=== PATIENT | male | born 1940 | race Caucasian/White ===

== ENCOUNTER 2016-08-29 12:45 | Inpatient (IN) | payer MEDICARE, OTHER ==
[~2016-08-29] VITALS: Ht 170.2 cm; Wt 121.0 kg
[2016-08-29] VITALS (11 sets, daily range): BP systolic 123–150; BP diastolic 69–98; PULSE 78–94; RESP 17–23; TEMP 98–98.8; O2SAT 92–100
--- NOTE | 2016-08-29 13:06 | PD ---
Physical Exam Time Seen by Provider: 13:05 Narrative 75 y/o male hx of COPD presents with BLE, increased SOB than usual for one week. Vital signs reviewed. Seen at triage desk. Awaiting bed placement. Data Data Last Documented VS Vital Signs Date Time Temp Pulse Resp B/P Pulse Ox O2 Delivery O2 Flow Rate FiO2 08/29/16 12:47 98.8 78 19 141/78 92 MDM Medical Record Reviewed: Yes Supervised Visit with [place]: Didier Murillo Aug 29, 2016 13:06
--- NOTE | 2016-08-29 16:03 | PD ---
HPI Chief Complaint: Respiratory Symptoms Time Seen by Provider: 16:02 Travel History International Travel<30 days: No Contact w/Intl Traveler<30days: No Traveled to known affect area: No History of Present Illness HPI 75-year-old male came to the emergency room with severe respiratory distress. Patient was very short of breath and could barely get one word per breath. What I understood he has been sick since Monday. He has history of COPD. He has been using his inhaler but he did not feel better. Patient is a smoker. He told me he has never been hospitalized for COPD. He uses a CPAP machine at home but his oxygen saturation was low and hence he decided to come in. No history of fever or chills. He was 92% on room air in triage. [facility] Past Medical History Narrative Medical List of his past medical, surgical, social and family history was reviewed from the nursing note. Respiratory: Yes Social History Tobacco Use: Yes Allergies-Medications (Allergen,Severity, Reaction): Coded Allergies: No Known Allergies (Unverified , 08/29/16) Comments No known drug allergies. Reported Meds & Prescriptions Reported Meds & Active Scripts Active Reported Advair Diskus Inh (Fluticasone-Salmeterol Inh) 250-50 Mcg/Blist Aer 1 Puff INH BID Rinse mouth after use. Vitamin D3 (Cholecalciferol) 2,000 Unit Cap 4,000 Units PO DAILY Aspirin 325 Mg Tab 325 Mg PO DAILY Dyrenium (Triamterene) Unknown Strength Cap Unknown Dose PO DAILY Zocor (Simvastatin) 20 Mg Tab 20 Mg PO DAILY Metformin (Metformin HCl) 500 Mg Tab 500 Mg PO BIDPC With meals Wellbutrin SR 12 HR (Bupropion HCl) 150 Mg Tab 150 Mg PO DAILY Narrative Medication Awaiting for the nurse to do the medical reconciliation. Review of Systems Except as stated in HPI: all other systems reviewed are Neg Physical Exam Narrative GENERAL: Awake, alert, significant distress, morbidly obese SKIN: Focused skin assessment warm/dry. Central cyanosis HEAD: Atraumatic. Normocephalic. EYES: Pupils equal and round. No scleral icterus. No injection or drainage. ENT: No nasal bleeding or discharge. Mucous membranes pink and moist. NECK: Trachea midline. No JVD. CARDIOVASCULAR: Regular rate and rhythm. No murmur appreciated. RESPIRATORY: Significantly diminished air entry bilaterally with prolonged expiration. Accessory muscles use for respiration GASTROINTESTINAL: Abdomen soft, non-tender, nondistended. Hepatic and splenic margins not palpable. MUSCULOSKELETAL: No obvious deformities. No clubbing. No cyanosis. No edema. NEUROLOGICAL: Awake and alert. No obvious cranial nerve deficits. Motor grossly within normal limits. Normal speech. PSYCHIATRIC: Appropriate mood and affect; insight and judgment normal. Data Data Last Documented VS Vital Signs Date Time Temp Pulse Resp B/P Pulse Ox O2 Delivery O2 Flow Rate FiO2 08/29/16 17:26 100 100 08/29/16 17:25 Ventilator 08/29/16 17:13 94 23 123/98 08/29/16 12:47 98.8 Orders Complete Blood Count With Diff (08/29/16 16:28) Basic Metabolic Panel (Bmp) (08/29/16 16:28) B-Type Natriuretic Peptide (08/29/16 16:28) Magnesium (Mg) (08/29/16 16:28) Troponin I (08/29/16 16:28) Urinalysis - C+S If Indicated (08/29/16 16:28) Iv Access Insert/Monitor (08/29/16 16:28) Electrocardiogram (08/29/16 16:28) Ecg Monitoring (08/29/16 16:28) Oximetry (08/29/16 16:28) Oxygen Administration (08/29/16 16:28) Chest, Single Ap (08/29/16 16:28) Sodium Chloride 0.9% Flush (Ns Flush) (08/29/16 16:30) Methylprednisolone So Succ Inj (Solumedr (08/29/16 16:30) Albuterol-Ipratropium Neb (Duoneb Neb) (08/29/16 16:30) Albuterol-Ipratropium Neb (Duoneb Neb) (08/29/16 16:30) Arterial Blood Gas (Abg) (08/29/16 ) Etomidate Inj (Amidate Inj) (08/29/16 17:07) Succinylcholine Inj (Quelicin Inj) (08/29/16 17:08) Propofol 1000 Mg/100 Ml Inj (Diprivan 10 (08/29/16 17:09) Albuterol Neb (Albuterol Neb) (08/29/16 17:15) Furosemide Inj (Lasix Inj) (08/29/16 17:45) Urinary Catheter Insert/Apply (08/29/16 17:34) Admit Order (Ed Use Only) (08/29/16 18:21) Labs Laboratory Tests Test 08/29/16 08/29/16 08/29/16 16:50 17:10 17:20 White Blood Count 12.0 TH/MM3 Red Blood Count 4.26 MIL/MM3 Hemoglobin 13.4 GM/DL Hematocrit 40.0 % Mean Corpuscular Volume 94.0 FL Mean Corpuscular Hemoglobin 31.5 PG Mean Corpuscular Hemoglobin 33.6 % Concent Red Cell Distribution Width 14.0 % Platelet Count 207 TH/MM3 Mean Platelet Volume 8.2 FL Neutrophils (%) (Auto) 66.4 % Lymphocytes (%) (Auto) 20.4 % Monocytes (%) (Auto) 9.7 % Eosinophils (%) (Auto) 2.3 % Basophils (%) (Auto) 1.2 % Neutrophils # (Auto) 8.0 TH/MM3 Lymphocytes # (Auto) 2.4 TH/MM3 Monocytes # (Auto) 1.2 TH/MM3 Eosinophils # (Auto) 0.3 TH/MM3 Basophils # (Auto) 0.1 TH/MM3 CBC Comment DIFF FINAL Differential Comment Sodium Level 138 MEQ/L Potassium Level 4.6 MEQ/L Chloride Level 102 MEQ/L Carbon Dioxide Level 29.5 MEQ/L Anion Gap 7 MEQ/L Blood Urea Nitrogen 18 MG/DL Creatinine 1.01 MG/DL Estimat Glomerular Filtration 72 ML/MIN Rate Random Glucose 102 MG/DL Calcium Level 9.6 MG/DL Magnesium Level 2.2 MG/DL Troponin I 0.07 NG/ML B-Type Natriuretic Peptide 431 PG/ML Urine Color LIGHT-YELLOW Urine Turbidity CLEAR Urine pH 7.5 Urine Specific [place] 1.008 Urine Protein 30 mg/dL Urine Glucose (UA) NEG mg/dL Urine Ketones NEG mg/dL Urine Occult Blood NEG Urine Nitrite NEG Urine Bilirubin NEG Urine Urobilinogen 2.0 MG/DL Urine Leukocyte Esterase NEG Urine RBC LESS THAN 1 /hpf Urine WBC LESS THAN 1 /hpf Urine Squamous Epithelial <1 /hpf Cells Microscopic Urinalysis Comment CULT NOT INDICATED Blood Gas Puncture Site RT RADIAL Blood Gas Patient Temperature 98.6 Blood Gas HCO3 27 mmol/L Blood Gas Base Excess 1.8 mmol/L Blood Gas Oxygen Saturation 98 % Arterial Blood pH 7.34 Arterial Blood Partial 51 mmHg Pressure CO2 Arterial Blood Partial 330 mmHG Pressure O2 Arterial Blood Oxygen Content 19.5 Vol % Arterial Blood 1.8 % Carboxyhemoglobin Arterial Blood Methemoglobin 0.5 % Blood Gas Hemoglobin 13.7 G/DL Oxygen Delivery Device BIPAP Blood Gas Ventilator Setting IPAP 16/EPAP 8 Blood Gas Inspired Oxygen 100 % MDM Medical Decision Making Medical Screen Exam Complete: Yes Emergency Medical Condition: Yes Medical Record Reviewed: Yes Interpretation(s) Twelve-lead EKG was reviewed by me. Normal sinus rhythm, normal axis, poor R- wave progression, motion artifacts. Heart rate of 92 bpm. Differential Diagnosis Acute COPD exacerbation, CHF, pleural effusion, pneumonia Narrative Course 6:27 PM patient was initially given 3 duo nebs [id number] after which patient had minimal improvement. Initially I was deciding to intubate him given severe work of breathing. However decided to give him a trial of BiPAP which remarkably improved his symptoms. He was also given 3 albuterol through the BiPAP. Arterial blood gas was at an acceptable result. Rest of the blood tests are within normal limits except for BNP which is mildly elevated. X-ray was read as CHF. Patient was given IV 60 mg of Lasix. I have admitted him to the hospitalist and CICU. Critical Care Narrative Aggregate critical care time was 60 minutes. Time to perform other separately billable procedures was not included in the critical care time. My time did not include minutes spent treating any other patients simultaneously or on activities that did not directly contribute to the patient's treatment. The services I provided to this patient were to treat and/or prevent clinically significant deterioration that could result in: Severe respiratory distress, CHF exacerbation I provided critical care services requiring my management, as noted below: Chart data review, documentation time, medication orders and management, vital sign assessments/reviewing monitor data, ordering and reviewing lab tests, ordering and interpreting/reviewing x-rays and diagnostic studies, care of the patient and discussion of the patient with the admitting physicians. Procedures EKG Prior to Arrival: No Diagnosis Primary Impression: Respiratory distress Additional Impressions: CHF (congestive heart failure) Qualified Code: I50.9 - Congestive heart failure, unspecified congestive heart failure chronicity, unspecified congestive heart failure type COPD exacerbation Admitting Information Admitting Physician Requests: Admit Scripts Oxygen (O2) Inha #4 Liter Tip.canula Continuous Oxygen Concentrator Portable Gaseous 2 L/min via Nasal [place] Continuous For 99 months Prov:Radhames Sousa MD 08/31/16 Potassium Chloride Microencaps 20 Meq Tab20 Meq PO Q12HR #60 TAB Prov:Radhames Sousa MD 08/31/16 Furosemide (Lasix)20 Mg Tab20 Mg PO BID #60 TAB Ref 0 Prov:Radhames Sousa MD 08/31/16 Azithromycin 250 Mg Uun755 Mg PO DAILY #5 TAB Ref 0 Prov:Radhames Sousa MD 08/31/16 Prednisone 20 Mg Tab20 Mg PO DIRECTED #11 TAB Ref 0 40 MG twice a day x 3 days, then 20 MG daily x 3 days, then 10 MG daily x 3 days Prov:Radhames Sousa MD 08/31/16 Albuterol 18 GM Inh (Ventolin Hfa 18 GM Inh)90 Mcg/Act Aer2 Puff INH Q4-6H PRN ( SHORTNESS OF BREATH) #1 INHALER Ref 3 Prov:Radhames Sousa MD 08/31/16 Ipratropium HFA 12.9 GM Inh (Atrovent HFA 12.9 GM Inh)17 Mcg/Act Aer2 Puff INH Q6HR PRN (SHORTNESS OF BREATH) #1 INHALER Ref 3 Prov:Radhames Sousa MD 08/31/16 Budesonide-Formoterol Inh (Symbicort Inh)160-4.5 Mcg/Act Aero2 Puff INH Q12HR # 1 INHALER Ref 3 Prov:Radhames Sousa MD 08/31/16 Tiotropium Inh (Spiriva Handihaler)18 Mcg Cap18 Mcg INH DAILY #1 CAP Ref 3 Prov:Radhames Sousa MD 08/31/16 Losartan (Cozaar)25 Mg Tab25 Mg PO DAILY #30 TAB Ref 3 Prov:Radhames Sousa MD 08/31/16 Carvedilol (Coreg)3.125 Mg Tab3.125 Mg PO BID #60 TAB Ref 3 Prov:Radhames Sousa MD 08/31/16 Dipti Steiner MD Aug 29, 2016 16:03
[2016-08-29] MEDS ORDERED: methylPREDNISolone SOD SUCC 125 MG/2 ML VIAL IVP ONE (16:30)
[2016-08-29] MEDS ORDERED: RESP: ALBUTEROL 2.5 MG/IPRATROPIUM 0.5 MG NEB (SCH) INH (16:30)
[2016-08-29] MEDS ORDERED: RESP: ALBUTEROL 2.5 MG/IPRATROPIUM 0.5 MG NEB (SCH) ONE (16:30)
[2016-08-29] MEDS ORDERED: SODIUM CHLORIDE 0.9% FLUSH 10 ML FLUSH IVF PRN (16:30)
[2016-08-29 17:05] LABS: BASOPHIL # 0.1 TH/MM3 (0-0.2); BASOPHIL % 1.2 % (0.0-2.0); EOSINOPHIL # 0.3 TH/MM3 (0-0.4); EOSINOPHIL % 2.3 % (0.0-4.0); LYMPH % 20.4 % (9.0-44.0); LYMPHOCYTE # 2.4 TH/MM3 (1.0-4.8); MEAN CORPUSCULAR HEMOGLOBIN 31.5 PG (27.0-34.0); MEAN CORPUSCULAR HGB CONC 33.6 % (32.0-36.0); MONO % 9.7 % (0.0-8.0); NEUT % 66.4 % (16.0-70.0); PLATELET COUNT 207 TH/MM3 (150-450); RED BLOOD COUNT 4.26 MIL/MM3 (4.50-5.90)
[2016-08-29] MEDS ORDERED: ETOMIDATE 20 MG/10 ML VIAL ONE (17:07)
[2016-08-29] MEDS ORDERED: SUCCINYLCHOLINE CHLORIDE 200 MG/10 ML VIAL ONE (17:08)
[2016-08-29 17:09] LABS: HEMO FLAGS DIFF FINAL
[2016-08-29] MEDS ORDERED: PROPOFOL 1000 MG/100 ML INJ 100 ML ONE (17:09)
--- NOTE | 2016-08-29 17:19 | RADRPT ---
EXAM DATE/TIME: 08/29/2016 16:56 [place] COMPARISON: No previous studies available for comparison. INDICATIONS : Patient has severe shortness of breath; unable to sit in stretcher. MEDICAL HISTORY : unobtainable SURGICAL HISTORY : unobtainable ENCOUNTER: Initial ACUITY: 2 days PAIN SCORE: 0/10 LOCATION: Bilateral upper chest FINDINGS: Limited views reveals moderate interstitial edema and substantial cardiomegaly. Repeat exam will be obtained when the patient's clinically stable. CONCLUSION: Significant cardiomegaly with moderate congestive failure. Kenny Lee MD FACR on August 29, 2016 at 17:16 Board Certified Radiologist. This report was verified electronically.
[2016-08-29] MEDS: RESP: ALBUTEROL 2.5 MG/3 ML NEB (SCH) INH (17:24)
[2016-08-29 17:40] LABS: BICARBONATE 29.5 MEQ/L (21.0-32.0); MAGNESIUM 2.2 MG/DL (1.5-2.5); POTASSIUM 4.6 MEQ/L (3.5-5.1)
[2016-08-29 17:43] LABS: BLOOD GAS BASE EXCESS 1.8 mmol/L (-2-2); BLOOD GAS CARBOXYHEMOGLOBIN 1.8 % (0-4); BLOOD GAS HCO3 27 mmol/L (22-26); BLOOD GAS METHEMOGLOBIN 0.5 % (0-2); BLOOD GAS O2 HGB SATURATION 98 % (90-100); BLOOD GAS OXYGEN CONTENT 19.5 Vol % (12.0-20.0); BLOOD GAS PCO2 51 mmHg (38-42); BLOOD GAS PO2 330 mmHG (61-120); BLOOD GAS TOTAL HGB 13.7 G/DL (12.0-16.0); CRITICAL VALUE YES; OXYGEN DEVICE BIPAP; TEMP CORR TO 98.6
[2016-08-29 17:44] LABS: DRAW SITE RT RADIAL; FIO2 100 %; NUMBER OF ARTERIAL PUNCTURES 1; STAT YES; ULNAR PULSE PRESENT; VENT SETTINGS IPAP 16/EPAP 8
[2016-08-29] MEDS ORDERED: FUROSEMIDE 20 MG/2 ML VIAL IV PUSH ONE (17:45)
[2016-08-29 18:21] LABS: BLOOD, URINE NEG (NEG); COMMENT (UR) CULT NOT INDICATED; CULTURE IF INDICATED CULT NOT INDICATED; GLUCOSE,URINE NEG (NEG); KETONE, URINE NEG (NEG); NITRITE,URINE NEG (NEG); PH, URINE 7.5 (5.0-8.5); SQUAMOUS EPITHELIAL CELL URINE <1 /hpf (0-5); URINE COLOR LIGHT-YELLOW (YELLW/STRAW)
--- NOTE | 2016-08-29 20:08 | HHI.HP ---
[facility] Service [facility] Primary Care Physician [facility] Admission Diagnosis respiratory distress, CHF exacerbation Diagnoses: Chief Complaint: Bilateral lower extremity and shortness of breath Travel History International Travel<30 Days: No Contact w/Intl Traveler <30 Da: No Traveled to Known Affected Are: No History of Present Illness Written by Kamryn Sanchez, acting as scribe for Dr. Long on 08/29/16 at 20: 04. This is a pleasant 75-year-old male patient with past medical history which includes hypertension, hyperlipidemia, diabetes mellitus type 2, COPD, sleep apnea does use BiPAP with oxygen at night-only. Patient presented with severe respiratory distress and hypoxia, severe short of breath he can barely see the one word, medical staff in ED were getting ready to intubate the patient however eventually they decided to go with a trial on BiPAP 100% FiO2 , with breathing treatment , arterial blood gas pH of 7.34, PCO2 of 51, PO2 of 330, base excess of 1.8, bicarbonate 27. Later on patient started to slowly improve, he was able to give some information, Patient reports that starting Monday 3 days ago he began having bilateral lower extremity edema which he has not on the past. Patient also reports shortness of breath and orthopnea as he is unable to lay flat due to worsening shortness of breath with laying flat. Patient also reports he had an episode on Monday where his home pulse oximetry was reading was in the 70s he treated himself with nebulizer treatments and his home BiPAP. Patient reports he has not gotten better therefore he proceeded to the emergency department for further evaluation and treatment. Patient is somewhat of a poor historian reports he does not know if he has a history of congestive heart failure and does not know if he takes diuretic or water pills at home. Patient denies fever, chills, nausea, vomiting, chest pain, changes in appetite changes, sodium intake or changes in weight. Review of Systems ROS Limitations: Poor Historian Except as stated in HPI: all other systems reviewed are Neg Past Family Social History Past Medical History COPD, sleep apnea does use CPAP with oxygen at night, hypertension, hyperlipidemia, diabetes mellitus type 2 Past Surgical History Tonsillectomy as a child Reported Medications Advair Diskus Inh (Fluticasone-Salmeterol Inh) 250-50 Mcg/Blist Aer 1 Puff INH BID Rinse mouth after use. Vitamin D3 (Cholecalciferol) 2,000 Unit Cap 4,000 Units PO DAILY Aspirin 325 Mg Tab 325 Mg PO DAILY Combivent Respimat Inh (Ipratropium-Albuterol Inh) 20-100 [place]/Act Aero 2 Puff INH QID PRN Dyrenium (Triamterene) Unknown Strength Cap Unknown Dose PO DAILY Zocor (Simvastatin) 20 Mg Tab 20 Mg PO DAILY Amlodipine (Amlodipine Besylate) 5 Mg Tab 5 Mg PO DAILY Atenolol 50 Mg Tab 50 Mg PO DAILY Metformin (Metformin HCl) 500 Mg Tab 500 Mg PO BIDPC With meals Wellbutrin SR 12 HR (Bupropion HCl) 150 Mg Tab 150 Mg PO DAILY Allergies: Coded Allergies: No Known Allergies (Unverified , 08/29/16) Active Ordered Medications Current Medications Medications (Trade) Dose Ordered Sig/Sherry Route Start Time Stop Time Status Last Admin (NS Flush) 2 ml UNSCH PRN IVF 08/29/16 16:30 Family History Father secondary to [place] Social History Tobacco use: Patient reports he smokes proximally half a pack a day but has not smoked in the past 3 days EtOH use occasional beer not on a daily basis Physical Exam Vital Signs Vital Signs Date Time Temp Pulse Resp B/P Pulse Ox O2 Delivery O2 Flow Rate FiO2 08/29/16 18:56 85 22 147/69 100 BiPAP 60 08/29/16 17:26 100 100 08/29/16 17:25 100 Ventilator 100 08/29/16 17:13 94 23 123/98 99 BiPAP 100 08/29/16 17:13 99 BiPAP 100 08/29/16 12:47 98.8 78 19 141/78 92 Physical Exam GENERAL: This is a well-nourished, well-developed patient, currently on BiPAP with poor air movement SKIN: No rashes, ecchymoses or lesions. Cool and dry. HEAD: Atraumatic. Normocephalic. No temporal or scalp tenderness. EYES: Extraocular motions intact. No scleral icterus. No injection or drainage. NECK: Trachea midline. Positive JVD or lymphadenopathy. Supple, nontender, no meningeal signs. CARDIOVASCULAR: Regular rate and rhythm with 3/6 systolic murmur and S3 noted RESPIRATORY: Poor air movement throughout GASTROINTESTINAL: Abdomen soft, non-tender, nondistended.No guarding. MUSCULOSKELETAL: Bilateral lower extremities with 3+ pitting edema. No joint tenderness, effusion, or edema noted. No calf tenderness. Negative Homans sign bilaterally. NEUROLOGICAL: Awake and alert. No focal deficits appreciated. Motor and sensory grossly within normal limits. 4-5 out of 5 muscle strength in all muscle groups. Laboratory Laboratory Tests Test 08/29/16 08/29/16 08/29/16 16:50 17:10 17:20 White Blood Count 12.0 Red Blood Count 4.26 Hemoglobin 13.4 Hematocrit 40.0 Mean Corpuscular Volume 94.0 Mean Corpuscular Hemoglobin 31.5 Mean Corpuscular Hemoglobin 33.6 Concent Red Cell Distribution Width 14.0 Platelet Count 207 Mean Platelet Volume 8.2 Neutrophils (%) (Auto) 66.4 Lymphocytes (%) (Auto) 20.4 Monocytes (%) (Auto) 9.7 Eosinophils (%) (Auto) 2.3 Basophils (%) (Auto) 1.2 Neutrophils # (Auto) 8.0 Lymphocytes # (Auto) 2.4 Monocytes # (Auto) 1.2 Eosinophils # (Auto) 0.3 Basophils # (Auto) 0.1 CBC Comment DIFF FINAL Differential Comment Sodium Level 138 Potassium Level 4.6 Chloride Level 102 Carbon Dioxide Level 29.5 Anion Gap 7 Blood Urea Nitrogen 18 Creatinine 1.01 Estimat Glomerular Filtration 72 Rate Random Glucose 102 Calcium Level 9.6 Magnesium Level 2.2 Troponin I 0.07 B-Type Natriuretic Peptide 431 Urine Color LIGHT-YELLOW Urine Turbidity CLEAR Urine pH 7.5 Urine Specific [place] 1.008 Urine Protein 30 Urine Glucose (UA) NEG Urine Ketones NEG Urine Occult Blood NEG Urine Nitrite NEG Urine Bilirubin NEG Urine Urobilinogen 2.0 Urine Leukocyte Esterase NEG Urine RBC LESS THAN 1 Urine WBC LESS THAN 1 Urine Squamous Epithelial <1 Cells Microscopic Urinalysis Comment CULT NOT INDICATED Blood Gas Puncture Site RT RADIAL Blood Gas Patient Temperature 98.6 Blood Gas HCO3 27 Blood Gas Base Excess 1.8 Blood Gas Oxygen Saturation 98 Arterial Blood pH 7.34 Arterial Blood Partial 51 Pressure CO2 Arterial Blood Partial 330 Pressure O2 Arterial Blood Oxygen Content 19.5 Arterial Blood 1.8 Carboxyhemoglobin Arterial Blood Methemoglobin 0.5 Blood Gas Hemoglobin 13.7 Oxygen Delivery Device BIPAP Blood Gas Ventilator Setting IPAP 16/EPAP 8 Blood Gas Inspired Oxygen 100 Result Diagram: 08/29/16 1650 08/29/16 1650 Imaging Last Impressions Chest X-Ray 08/29/16 1628 Signed Impressions: Service Date/Time: Monday, August 29, 2016 16:56 - CONCLUSION: Significant cardiomegaly with moderate congestive failure. Kenny Lee MD FACR Assessment and Plan Problem List: (1) Respiratory distress ICD Code: R06.00 Status: Acute (2) CHF (congestive heart failure) ICD Code: I50.9 Status: Acute (3) COPD exacerbation ICD Code: J44.1 Status: Acute Assessment and Plan This is a pleasant 75-year-old male patient with past medical history which includes hypertension, hyperlipidemia, diabetes mellitus type 2, COPD, sleep apnea does use BiPAP with oxygen at night-only, patient reports that starting Monday 3 days ago he began having bilateral lower extremity edema which he has not on the past. patient presented with respiratory distress, hypoxia only able to speak one word at a time do to shortness of breath was near intubation. Patient was initially placed on BiPAP 100% FiO2 with a arterial blood gas pH of 7.34, PCO2 of 51, PO2 of 3:30, base excess of 1.8, bicarbonate 27. Severe respiratory failure due to COPD exacerbation with respiratory acidosis, hypoxia and respiratory distress Personally ordered and Reviewed ABG on BiPAP after almost hour and a half of applying nebulizers and BiPAP reveals pH of 7.34, PCO2 of 51, PO2 of 3:30, base excess of 1.8, bicarbonate 27. Continue BiPAP titrated down to as able Duo nebs 4 times a day scheduled and every 2 hours as needed Chest x-ray reviewed and reveals significant cardiomegaly with moderate congestive heart failure New onset CHF with exacerbation- unknown CHF-type echo pending BNP on arrival 431 60 mg IV Lasix ordered start Coreg 3.125 mg by mouth twice a day, losartan 25 mg by mouth daily and also Lasix 40 mg IV twice a day Echocardiogram ordered and pending Chest x-ray reviewed and reveals significant cardiomegaly with moderate congestive heart failure Hypertension- chronic Will hold atenolol and amlodipine and triamterene Will start Coreg 3.125 mg by mouth twice a day, losartan 25 mg by mouth daily and also Lasix 40 mg IV twice a day Diabetes mellitus type 2- chronic Hold by mouth metformin to avoid lactic acidosis Start Accu-Cheks before meals at bedtime with low-dose sliding scale insulin coverage Hyperlipidemia chronic Continue simvastatin 20 mg daily DVT prophylaxis with heparin subcutaneous Discussed with ER provider, nursing and patient Critical care time spent 60 minutes Physician Certification 2 Midnight Certification Type: Admission for Inpatient Services Order for Inpatient Services The services are ordered in accordance with Medicare regulations or non- Medicare payer requirements, as applicable. In the case of services not specified as inpatient-only, they are appropriately provided as inpatient services in accordance with the 2-midnight benchmark. Estimated LOS (days): 4 days is the estimated time the patient will need to remain in the hospital, assuming treatment plan goals are met and no additional complications. Post-Hospital Plan: Not yet determined Problem Qualifiers (1) CHF (congestive heart failure): Qualified Code: I50.9 - Congestive heart failure, unspecified congestive heart failure chronicity, unspecified congestive heart failure type Kamryn Sanchez Aug 29, 2016 20:08 Nida Long MD Aug 31, 2016 21:31
[2016-08-29] MEDS ORDERED: ZOCO20TA PO (20:33)
[2016-08-29] MEDS ORDERED: TRIA1CAP6 PO (20:33)
[2016-08-29] MEDS ORDERED: METF500T PO (20:33)
[2016-08-29] MEDS ORDERED: BUPR150CR PO (20:33)
[2016-08-29] MEDS ORDERED: AMLO5TAB2 PO (20:33)
[2016-08-29] MEDS ORDERED: ATEN50TA PO (20:33)
[2016-08-29] MEDS ORDERED: VITA2000 PO (20:35)
[2016-08-29] MEDS ORDERED: ADVA250A INH (20:35)
[2016-08-29] MEDS ORDERED: ASPI325T PO (20:35)
[2016-08-29] MEDS ORDERED: IPRAAER INH (20:35)
[2016-08-29] MEDS ORDERED: NALOXONE HCL 0.4 MG/ML AMP IV PRN (20:45)
[2016-08-29] MEDS ORDERED: SODIUM CHLORIDE 0.9% FLUSH 10 ML FLUSH IV FLUSH PRN (20:45)
[2016-08-29] MEDS ORDERED: MAGNESIUM HYDROXIDE SUSP 30 ML CUP PO PRN (20:45)
[2016-08-29] MEDS ORDERED: ACETAMINOPHEN 325 MG TAB PO PRN (20:45)
[2016-08-29] MEDS: INSULIN NovoLIN REGULAR SUPPLEMENTAL SCALE SQ SCH (21:00)
[2016-08-29] MEDS ORDERED: ENALAPRILAT 1.25 MG/ML VIAL IV PUSH PRN (21:00)
[2016-08-29] MEDS: HEPARIN SODIUM - SQ 10,000 UNITS/ML VIAL SQ SCH (21:00)
[2016-08-29] MEDS ORDERED: DEXTROSE 50% IN WATER 50 ML VIAL(D50) IV PRN (21:00)
[2016-08-29] MEDS: DOCUSATE SODIUM 50 MG/SENNA 8.6 MG TAB PO SCH (21:00)
[2016-08-29] MEDS ORDERED: BUDESONIDE-FORMOTEROL 160/4.5 MCG INHALER INH SCH (21:00)
[2016-08-29] MEDS ORDERED: RESP: ALBUTEROL 2.5 MG/IPRATROPIUM 0.5 MG NEB (PRN) NEB (21:00)
[2016-08-29] MEDS: CARVEDILOL 3.125 MG TAB PO SCH (21:00)
[2016-08-29] MEDS: ASPIRIN 325 MG TAB PO SCH (21:00)
[2016-08-29] MEDS ORDERED: NON-FORMULARY DRUG (Fluticasone-Salmeterol Inh (Advair Diskus Inh) 1 PUFF) INH SCH (21:00)
[2016-08-29] MEDS ORDERED: GLUCAGON 1 MG/ML VIAL OTHER PRN (21:00)
[2016-08-29] MEDS: RESP: ALBUTEROL 2.5 MG/IPRATROPIUM 0.5 MG NEB (SCH) NEB (21:27)
[2016-08-29] MEDS: BUDESONIDE-FORMOTEROL 160/4.5 MCG INHALER INH SCH (22:41)
[2016-08-29] MEDS: SODIUM CHLORIDE 0.9% FLUSH 10 ML FLUSH IV FLUSH SCH (22:41)
[2016-08-30] VITALS (29 sets, daily range): BP systolic 139–148; BP diastolic 79–82; PULSE 67–86; RESP 16–22; TEMP 98–98.9; O2SAT 91–97
[2016-08-30] MEDS: HEPARIN SODIUM - SQ 10,000 UNITS/ML VIAL SQ SCH ×3 (05:23→20:52)
[2016-08-30] MEDS: INSULIN NovoLIN REGULAR SUPPLEMENTAL SCALE SQ SCH (06:10)
[2016-08-30] MEDS: RESP: ALBUTEROL 2.5 MG/IPRATROPIUM 0.5 MG NEB (SCH) NEB ×4 (07:32→20:12)
[2016-08-30 08:42] LABS: AUTOMATED NEUTROPHIL # 4.9 TH/MM3 (1.8-7.7); BASOPHIL % 0.1 % (0.0-2.0); HEMATOCRIT 35.7 % (39.0-51.0); HEMO FLAGS DIFF FINAL; LYMPHOCYTE # 0.6 TH/MM3 (1.0-4.8); MEAN CELL VOLUME 92.6 FL (80.0-100.0); MEAN CORPUSCULAR HEMOGLOBIN 31.9 PG (27.0-34.0); MEAN CORPUSCULAR HGB CONC 34.4 % (32.0-36.0); MONO % 2.9 % (0.0-8.0); PLATELET COUNT 177 TH/MM3 (150-450); RED BLOOD COUNT 3.85 MIL/MM3 (4.50-5.90); RED CELL DISTRIBUTION WIDTH 13.8 % (11.6-17.2); WHITE BLOOD COUNT 5.6 TH/MM3 (4.0-11.0)
[2016-08-30] MEDS ORDERED: NON-FORMULARY DRUG (Simvastatin (Zocor) 20 MG) PO SCH (09:00)
[2016-08-30] MEDS: buPROPion HCL 150 MG SUSTAINED RELEASE TAB PO SCH (09:04)
[2016-08-30] MEDS: PRAVASTATIN SOD 40 MG TAB PO SCH (09:04)
[2016-08-30] MEDS: ASPIRIN 325 MG TAB PO SCH (09:04)
[2016-08-30] MEDS: CARVEDILOL 3.125 MG TAB PO SCH ×2 (09:04→20:52)
[2016-08-30] MEDS: LOSARTAN 25 MG TAB PO SCH (09:04)
[2016-08-30] MEDS: DOCUSATE SODIUM 50 MG/SENNA 8.6 MG TAB PO SCH ×2 (09:04→20:52)
[2016-08-30] MEDS: FUROSEMIDE 40 MG/4 ML VIAL IV PUSH SCH ×2 (09:05→17:24)
[2016-08-30] MEDS: SODIUM CHLORIDE 0.9% FLUSH 10 ML FLUSH IV FLUSH SCH ×2 (09:05→20:52)
[2016-08-30] MEDS: BUDESONIDE-FORMOTEROL 160/4.5 MCG INHALER INH SCH ×2 (09:05→20:51)
[2016-08-30 09:25] LABS: INDIRECT BILIRUBIN 0.2 MG/DL (0.0-0.8); POTASSIUM 4.1 MEQ/L (3.5-5.1); TOTAL BILIRUBIN ADULT 0.3 MG/DL (0.2-1.0)
[2016-08-30] MEDS ORDERED: DEXTROSE 50% IN WATER 50 ML VIAL(D50) IV PRN (10:00)
[2016-08-30] MEDS ORDERED: GLUCAGON 1 MG/ML VIAL OTHER PRN (10:00)
--- NOTE | 2016-08-30 10:10 | HHI.PR ---
Subjective Remarks Follow-up COPD exacerbation/new onset CHF 08/30/16-patient seen and examined ;reports some improvement of shortness of breath however currently on nasal cannula 5 L oxygen and has not used BiPAP overnight. Currently afebrile Objective Vitals Vital Signs Date Time Temp Pulse Resp B/P Pulse Ox O2 Delivery O2 Flow Rate FiO2 08/30/16 07:55 95 Nasal Cannula 5.00 Humidified 08/30/16 07:54 98.9 85 22 139/81 95 08/30/16 07:32 91 Nasal Cannula 5.00 08/30/16 07:00 83 08/30/16 06:00 83 08/30/16 05:00 77 08/30/16 04:03 79 08/30/16 03:35 81 08/30/16 03:35 94 Nasal Cannula 5.00 Humidified 08/30/16 03:35 98.0 82 16 148/80 94 08/30/16 02:00 81 08/30/16 01:00 82 08/30/16 00:00 86 08/29/16 23:05 98.6 93 17 130/73 93 08/29/16 23:00 93 Nasal Cannula 5.00 Humidified 08/29/16 23:00 89 08/29/16 22:00 94 Nasal Cannula 5.00 Humidified 08/29/16 22:00 90 08/29/16 21:50 98.0 94 20 150/84 95 08/29/16 21:30 96 Nasal Cannula 5.00 08/29/16 21:26 81 20 143/73 95 Nasal Cannula 3 08/29/16 18:56 85 22 147/69 100 BiPAP 60 08/29/16 17:26 100 100 08/29/16 17:25 100 Ventilator 100 08/29/16 17:13 94 23 123/98 99 BiPAP 100 08/29/16 17:13 99 BiPAP 100 08/29/16 12:47 98.8 78 19 141/78 92 I/O 08/29/16 08/29/16 08/29/16 08/30/16 08/30/16 08/30/16 07:00 15:00 23:00 07:00 15:00 23:00 Intake Total 835 ml Output Total 650 ml Balance 185 ml Intake Oral 835 ml Output Urine Total 650 ml # Bowel Movements 0 Result Diagram: 08/30/16 0619 08/30/16 0629 Imaging Last Impressions Chest X-Ray 08/29/16 1628 Signed Impressions: Service Date/Time: Monday, August 29, 2016 16:56 - CONCLUSION: Significant cardiomegaly with moderate congestive failure. Kenny Lee MD FACR Objective Remarks GENERAL: NAD SKIN: Warm and dry. HEAD: Normocephalic. EYES: No scleral icterus. No injection or drainage. NECK: Supple, trachea midline. No JVD or lymphadenopathy. CARDIOVASCULAR: Regular rate and rhythm with II/ MARY RESPIRATORY: Breath sounds decrease bilaterally. No accessory muscle use.+ wheezings GASTROINTESTINAL: Abdomen soft, non-tender, nondistended. MUSCULOSKELETAL: No cyanosis, +trace edema. BACK: Nontender without obvious deformity. No CVA tenderness. A/P Problem List: (1) Respiratory distress ICD Code: R06.00 Status: Acute (2) CHF (congestive heart failure) ICD Code: I50.9 Status: Acute (3) COPD exacerbation ICD Code: J44.1 Status: Acute (4) Diabetes mellitus, type 2 ICD Code: E11.9 Status: Acute Assessment and Plan 75-year-old man with COPD exacerbation with respiratory acidosis, hypoxia and respiratory distress On admission ABG on BiPAP reveals pH of 7.34, PCO2 of 51, PO2 of 3:30, base excess of 1.8, bicarbonate 27. Continue BiPAP titrated down to as able Duo nebs 4 times a day scheduled and every 2 hours as needed,Symbicort Start Solu-Medrol 40 mg IV every 12 hours, Spiriva and azithromycin Currently on 5 L nasal cannula and keep oxygen saturation above 90% Schedule walk test prior to discharge New onset CHF with exacerbation- unknown CHF-type echo pending BMP on arrival 431 Currently on Lasix 40 mg every 12 hourly Continue with Coreg 3.125 mg by mouth twice a day, losartan 25 mg by mouth daily Consult cardiology pending Echocardiogram pending Hypertension- chronic Currently on Coreg 3.125 mg by mouth twice a day, losartan 25 mg by mouth daily Diabetes mellitus type 2- chronic Hold by mouth metformin continue Accu-Cheks and change to medium-dose sliding scale insulin coverage Hyperlipidemia chronic Continue simvastatin 20 mg daily DVT-Heparin Sq Problem Qualifiers (1) CHF (congestive heart failure): Qualified Code: I50.9 - Congestive heart failure, unspecified congestive heart failure chronicity, unspecified congestive heart failure type Radhames Sousa MD Aug 30, 2016 10:10
[2016-08-30] MEDS: methylPREDNISolone SOD SUCC 40 MG/1 ML VIAL IV PUSH SCH ×2 (10:34→20:52)
[2016-08-30] MEDS: INSULIN ASPART SUPPLEMENTAL SCALE SQ SCH ×3 (11:00→20:55)
[2016-08-30] MEDS: TIOTROPIUM BROMIDE 18 MCG INH INH SCH (11:44)
[2016-08-30] MEDS: AZITHROMYCIN 250 MG TAB PO SCH (13:07)
--- NOTE | 2016-08-30 18:05 | MB ---
cc: SERGO BROWNLEE M.D. DATE OF CONSULTATION: 08/30/2016 REASON FOR CONSULTATION: HISTORY OF PRESENT ILLNESS: Miguel Ángel is a very pleasant 75 year-old gentleman with no past medical history for significant cardiovascular disease. He presents with chief complaint of shortness of breath, currently feels much better and is very anxious to go home. Denies any fever, chills, cough, GI/ bleeding, PND, orthopnea, dizziness. PAST MEDICAL HISTORY: As per history of present illness. He has a history of COPD. C-PAP machine at home. SOCIAL HISTORY: He smokes. ALLERGIES: NONE. MEDICATIONS IN THE HOSPITAL: Azithromycin 250 q24 hours. 1. Potassium chloride 20 milliequivalents q12 hours. 2. Sliding scale insulin. 3. Methylprednisolone. 4. Spiriva. 5. Furosemide 40 IV b.i.d. 6. Losartan 2 daily. 7. Bupropion 150 daily. 8. Pravastatin 40 daily. 9. Carvedilol 3.25 b.i.d. 10. Aspirin 325 daily. 11. Symbicort. PHYSICAL EXAMINATION: Blood pressure 146/79, pulse 75, temperature 98.4, sats 93% on 3 liters nasal cannula. General: He is alert and oriented x3 in no acute distress. Neck: Supple. No JVD. No bruits. Cardiovascular: S1-S2. No murmurs, rubs, or gallops. Lungs: Clear to auscultation bilaterally. Abdomen: Soft, nontender, nondistended. Positive bowel sounds. Extremities 1+ lower extremity edema. X-RAYS: Chest x-ray significant for cardiomegaly with moderate congestive heart failure. EKG: normal sinus rhythm at 92 beats per minute, late R-wave transition. LABORATORY DATA White count 12.0, hemoglobin 12.3, hematocrit 35.7, platelet count 177, blood gas pH 7.34, pCO2 51, pO2 330, on 100% BiPAP. Sodium 135, potassium 4.1, chloride 98, BUN 26, creatinine 1.14, glucose 241. Troponin is 0.07, 0.08, BNP 431. DIAGNOSIS 12. Non-STEMI. 13. COPD. 14. Hypoxia 15. Decompensated congestive heart failure 16. Hyponatremia 17. Cardiomegaly. 18. Anemia. 19. Elevated white count 20. Tobacco use. DISCUSSION At this point in time, his history suggests that his troponin is elevated secondary to COPD exacerbation. He is being treated with nebulizers, bronchodilators, steroids and antibiotics for this. I doubt he has a primary obstructive etiology to his elevated troponin. BMP is somewhat indeterminate. It certainly could be from pulmonary hypertension from COPD and/or LV dysfunction, nevertheless, clinically he is responding well to Lasix. He is very anxious to go home. I think it is very reasonable to consider letting him go home tomorrow. He is not having any chest pain at all. I think the rest of his workup can be done as an outpatient. Certainly strongly recommend smoking cessation. Agree with aspirin, statin, beta-vangie, nitro. He is on an ARB, Losartan. He appears to be on optimal medical therapy. MD NIMA Willams/REYNA /4:00 PM /5:54 PM
[2016-08-30] MEDS: POTASSIUM CHLORIDE 20 MEQ CONTROLLED RELEASE TAB PO SCH (20:52)
--- NOTE | 2016-08-30 21:22 | EKG ---
Date Performed: 08/29/2016 Time Performed: 17:39:07 PTAGE: 75 years EKG: Sinus rhythm POSSIBLE ANTERIOR MYOCARDIAL INFARCTION BORDERLINE ECG NO PREVIOUS TRACING DOCTOR: Kaleb Ledezma Interpretating Date/Time 08/30/2016 21:17:47
[2016-08-31] VITALS (23 sets, daily range): BP systolic 143–159; BP diastolic 77–92; PULSE 58–74; RESP 22–24; TEMP 98–98.5; O2SAT 96–98
[2016-08-31] MEDS: HEPARIN SODIUM - SQ 10,000 UNITS/ML VIAL SQ SCH ×2 (05:00→12:30)
[2016-08-31] MEDS: INSULIN ASPART SUPPLEMENTAL SCALE SQ SCH ×3 (05:37→17:27)
[2016-08-31 06:46] LABS: AUTOMATED NEUTROPHIL # 11.8 TH/MM3 (1.8-7.7); HEMATOCRIT 39.3 % (39.0-51.0); HEMO FLAGS DIFF FINAL; LYMPH % 5.8 % (9.0-44.0); LYMPHOCYTE # 0.8 TH/MM3 (1.0-4.8); MEAN CELL VOLUME 93.4 FL (80.0-100.0); MEAN CORPUSCULAR HEMOGLOBIN 30.7 PG (27.0-34.0); MEAN CORPUSCULAR HGB CONC 32.9 % (32.0-36.0); MONO % 2.7 % (0.0-8.0); NEUT % 91.5 % (16.0-70.0); PLATELET COUNT 199 TH/MM3 (150-450); RED BLOOD COUNT 4.21 MIL/MM3 (4.50-5.90); RED CELL DISTRIBUTION WIDTH 13.7 % (11.6-17.2); WHITE BLOOD COUNT 12.9 TH/MM3 (4.0-11.0)
[2016-08-31 07:09] LABS: BICARBONATE 35.2 MEQ/L (21.0-32.0); POTASSIUM 4.8 MEQ/L (3.5-5.1)
[2016-08-31] MEDS: RESP: ALBUTEROL 2.5 MG/IPRATROPIUM 0.5 MG NEB (SCH) NEB ×3 (07:36→15:07)
--- NOTE | 2016-08-31 08:35 | HHI.PR ---
Subjective Remarks Follow-up COPD exacerbation/new onset CHF 08/30/16-patient seen and examined ;reports some improvement of shortness of breath however currently on nasal cannula 5 L oxygen and has not used BiPAP overnight. Currently afebrile 08/31/16-patient seen and examined, denies any chest pain, shortness of breath or heart palpitation. No acute event overnight. Able to use his own CPAP at night. Would like to go home Objective Vitals Vital Signs Date Time Temp Pulse Resp B/P Pulse Ox O2 Delivery O2 Flow Rate FiO2 08/31/16 07:38 97 Nasal Cannula 3.00 08/31/16 06:00 58 08/31/16 05:00 67 08/31/16 04:04 67 08/31/16 04:00 98.1 61 22 148/87 96 08/31/16 03:49 98 Nasal Cannula 2.00 08/31/16 03:00 67 08/31/16 02:00 66 08/31/16 01:00 65 08/31/16 00:00 70 08/31/16 00:00 98.0 64 24 146/77 98 08/30/16 23:30 94 Nasal Cannula 2.00 08/30/16 23:00 67 08/30/16 22:00 67 08/30/16 21:00 68 08/30/16 20:13 92 Nasal Cannula 3.00 08/30/16 20:00 98.2 78 20 139/82 94 08/30/16 20:00 94 Nasal Cannula 2.00 08/30/16 20:00 70 08/30/16 19:00 78 08/30/16 19:00 71 08/30/16 18:00 75 08/30/16 17:22 96 Nasal Cannula 2.00 08/30/16 17:00 73 08/30/16 16:00 75 08/30/16 15:00 98.4 80 21 146/79 93 08/30/16 15:00 73 08/30/16 15:00 93 Nasal Cannula 3.00 Humidified 08/30/16 14:00 75 08/30/16 13:17 95 Nasal Cannula 3.00 Humidified 08/30/16 13:00 72 08/30/16 12:53 96 Nasal Cannula 3.00 Humidified 08/30/16 12:00 69 08/30/16 11:48 Nasal Cannula 4.00 Humidified 08/30/16 11:19 96 Nasal Cannula 5.00 Humidified 08/30/16 11:16 70 08/30/16 11:15 98.4 74 18 143/81 96 08/30/16 11:05 97 Nasal Cannula 5.00 08/30/16 10:00 71 08/30/16 09:00 78 I/O 08/30/16 08/30/16 08/30/16 08/31/16 08/31/16 08/31/16 06:59 14:59 22:59 06:59 14:59 22:59 Intake Total 835 ml 720 ml 420 ml Output Total 650 ml 2025 ml 1100 ml Balance 185 ml -1305 ml -680 ml Intake Oral 835 ml 720 ml 420 ml Output Urine Total 650 ml 2025 ml 1100 ml # Bowel Movements 0 Result Diagram: 08/31/16 0542 08/31/16 0542 Imaging Last Impressions Chest X-Ray 08/29/16 1628 Signed Impressions: Service Date/Time: Monday, August 29, 2016 16:56 - CONCLUSION: Significant cardiomegaly with moderate congestive failure. Kenny Lee MD FACR Objective Remarks GENERAL: NAD SKIN: Warm and dry. HEAD: Normocephalic. EYES: No scleral icterus. No injection or drainage. NECK: Supple, trachea midline. No JVD or lymphadenopathy. CARDIOVASCULAR: Regular rate and rhythm with II/ MARY RESPIRATORY: Breath sounds decrease bilaterally. No accessory muscle use.+ wheezings GASTROINTESTINAL: Abdomen soft, non-tender, nondistended. MUSCULOSKELETAL: No cyanosis, +trace edema. BACK: Nontender without obvious deformity. No CVA tenderness. A/P Problem List: (1) Respiratory distress ICD Code: R06.00 Status: Acute (2) CHF (congestive heart failure) ICD Code: I50.9 Status: Acute (3) COPD exacerbation ICD Code: J44.1 Status: Acute (4) Diabetes mellitus, type 2 ICD Code: E11.9 Status: Acute (5) Non-ST elevation [place] (NSTEMI) ICD Code: I21.4 Status: Acute Assessment and Plan 75-year-old man with COPD exacerbation with respiratory acidosis, hypoxia and respiratory distress Continue BiPAP titrated down to as able Duo nebs 4 times a day scheduled and every 2 hours as needed,Symbicort Discontinue Solu-Medrol 40 mg IV every 12 hours, and starts prednisone 20 mg daily and continue Spiriva, Symbicort and azithromycin Currently on 5 L nasal cannula and keep oxygen saturation above 90% Acute hypoxia/approximately: Patient will be requiring home oxygen on discharge as other alternative measures were tried and were ineffective as patient failed respiratory walk test today 08/31/16 Non-ST elevation VA New onset CHF with exacerbation- unknown CHF-type echo pending BMP on arrival 431 Currently on Lasix 40 mg every 12 hourly and switch to 20 mg twice a day Continue with Coreg 3.125 mg by mouth twice a day, losartan 25 mg by mouth daily Appreciate input from cardiology pending Echocardiogram Hypertension- chronic Currently on Coreg 3.125 mg by mouth twice a day, losartan 25 mg by mouth daily Diabetes mellitus type 2- chronic Hold by mouth metformin continue Accu-Cheks and medium-dose sliding scale insulin coverage Hyperlipidemia chronic Continue simvastatin 20 mg daily DVT-Heparin Sq Problem Qualifiers (1) CHF (congestive heart failure): Qualified Code: I50.9 - Congestive heart failure, unspecified congestive heart failure chronicity, unspecified congestive heart failure type Radhames Sousa MD Aug 31, 2016 08:35
[2016-08-31] MEDS ORDERED: POTA20TA5 PO (08:46)
[2016-08-31] MEDS ORDERED: VENTAER INH (08:46)
[2016-08-31] MEDS ORDERED: SYMB160A INH (08:46)
[2016-08-31] MEDS ORDERED: SPIRCAP INH (08:46)
[2016-08-31] MEDS ORDERED: AZIT250T3 PO (08:46)
[2016-08-31] MEDS ORDERED: PRED20 PO (08:46)
[2016-08-31] MEDS ORDERED: COZA25TA PO (08:46)
[2016-08-31] MEDS ORDERED: IPRA17I INH (08:46)
[2016-08-31] MEDS ORDERED: FURO1TAB62 PO (08:46)
[2016-08-31] MEDS ORDERED: CARV3.125 PO (08:46)
--- NOTE | 2016-08-31 08:47 | HHI.FF ---
Face to Face Verification Diagnosis: (1) CHF (congestive heart failure) (2) COPD exacerbation (3) Non-ST elevation [place] (NSTEMI) (4) Respiratory distress Home Health Nursing Order: Signs/symptoms of disease process I have seen patient Miguel Ángel Ahumada on 08/31/16. My clinical findings support the need for the requested home health care services because: Patient has SOB I certify that my clinical findings support that this patient is homebound because: Hx COPD- exertion dyspnea/weakness Poor cardiac reserve Radhames Sousa MD Aug 31, 2016 08:47
--- NOTE | 2016-08-31 08:50 | HHI.DS ---
Discharge Summary Admission Date Aug 29, 2016 at 18:23 Discharge Date: Aug 31, 2016 Admitting Diagnosis respiratory distress, CHF exacerbation (1) COPD exacerbation ICD Code: J44.1 (2) Respiratory distress ICD Code: R06.00 (3) CHF (congestive heart failure) ICD Code: I50.9 (4) Diabetes mellitus, type 2 ICD Code: E11.9 (5) Non-ST elevation [place] (NSTEMI) ICD Code: I21.4 Procedures none Brief History - From Admission Written by Kamryn Sanchez, acting as scribe for Dr. Long on 08/29/16 at 20: 04. This is a pleasant 75-year-old male patient with past medical history which includes hypertension, hyperlipidemia, diabetes mellitus type 2, COPD, sleep apnea does use BiPAP with oxygen at night- reports he does not use oxygen during the day. Patient reports that starting Monday 3 days ago he began having bilateral lower extremity edema which he has not on the past. Patient also reports shortness of breath and orthopnea as he is unable to lay flat due to worsening shortness of breath with laying flat. Patient also reports he had an episode on Monday where his home pulse oximetry was reading was in the 70s he treated himself with nebulizer treatments and his home BiPAP. Patient reports he has not gotten better therefore he proceeded to the emergency department for further evaluation and treatment. Patient is somewhat of a poor historian reports he does not know if he has a history of congestive heart failure and does not know if he takes diuretic or water pills at home. Patient denies fever, chills, nausea, vomiting, chest pain, changes in appetite changes , sodium intake or changes in weight. Reporting to prior ER documentation patient presented with respiratory distress , hypoxia only able to speak one word at a time do to shortness of breath was near intubation. Patient was initially placed on BiPAP 100% FiO2 with a arterial blood gas pH of 7.34, PCO2 of 51, PO2 of 3:30, base excess of 1.8, bicarbonate 27. CBC/BMP: 08/31/16 0542 08/31/16 0542 Significant Findings Laboratory Tests Test 08/29/16 08/29/16 08/29/16 08/29/16 16:50 17:10 17:20 21:15 White Blood Count 12.0 TH/MM3 (4.0-11.0) Red Blood Count 4.26 MIL/MM3 (4.50-5.90) Monocytes (%) (Auto) 9.7 % (0.0-8.0) Neutrophils # (Auto) 8.0 TH/MM3 (1.8-7.7) Monocytes # (Auto) 1.2 TH/MM3 (0-0.9) Estimat Glomerular Filtration 72 ML/MIN (>89) Rate Troponin I 0.07 NG/ML 0.08 NG/ML (0.02-0.05) (0.02-0.05) B-Type Natriuretic Peptide 431 PG/ML (0-100) Urine Protein 30 mg/dL (NEG-TRACE) Blood Gas HCO3 27 mmol/L (22-26) Arterial Blood pH 7.34 (7.380-7.420) Arterial Blood Partial 51 mmHg (38-42) Pressure CO2 Arterial Blood Partial 330 mmHG Pressure O2 (61-120) Test 08/30/16 08/30/16 08/31/16 06:19 06:29 05:42 Red Blood Count 3.85 MIL/MM3 4.21 MIL/MM3 (4.50-5.90) (4.50-5.90) Hemoglobin 12.3 GM/DL 12.9 GM/DL (13.0-17.0) (13.0-17.0) Hematocrit 35.7 % (39.0-51.0) Neutrophils (%) (Auto) 87.0 % 91.5 % (16.0-70.0) (16.0-70.0) Lymphocytes # (Auto) 0.6 TH/MM3 0.8 TH/MM3 (1.0-4.8) (1.0-4.8) Sodium Level 135 MEQ/L (136-145) Blood Urea Nitrogen 26 MG/DL (7-18) 35 MG/DL (7-18) Estimat Glomerular Filtration 63 ML/MIN (>89) 61 ML/MIN (>89) Rate Random Glucose 241 MG/DL 157 MG/DL (74-106) (74-106) Albumin 3.3 GM/DL (3.4-5.0) White Blood Count 12.9 TH/MM3 (4.0-11.0) Lymphocytes (%) (Auto) 5.8 % (9.0-44.0) Neutrophils # (Auto) 11.8 TH/MM3 (1.8-7.7) Carbon Dioxide Level 35.2 MEQ/L (21.0-32.0) Imaging Last Impressions Chest X-Ray 08/29/16 1628 Signed Impressions: Service Date/Time: Monday, August 29, 2016 16:56 - CONCLUSION: Significant cardiomegaly with moderate congestive failure. Kenny Lee MD FACR PE at Discharge GENERAL: NAD SKIN: Warm and dry. HEAD: Normocephalic. EYES: No scleral icterus. No injection or drainage. NECK: Supple, trachea midline. No JVD or lymphadenopathy. CARDIOVASCULAR: Regular rate and rhythm with II/ MARY RESPIRATORY: Breath sounds decrease bilaterally. No accessory muscle use.+ wheezings GASTROINTESTINAL: Abdomen soft, non-tender, nondistended. MUSCULOSKELETAL: No cyanosis, +trace edema. BACK: Nontender without obvious deformity. No CVA tenderness. Hospital Course Patient admitted secondary to COPD exacerbation along with respiratory failure and treated with Solu-Medrol, bronchodilators, antibiotic and oxygen with his saturation maintained above 90%. He was subsequently switched to by mouth prednisone. Secondary to newly diagnosed congestive heart failure cardiology was consulted, patient was treated medically with initially IV diuretics which was subsequently switched to by mouth Lasix prior to discharge and he was started on Coreg as well as losartan. He was place on insulin sliding scale with monitoring of blood glucose. Prior to discharge walk test was performed and patient will be requiring oxygen on discharge. Patient's condition improved and vital remained stable. Pt Condition on Discharge: Stable Discharge Disposition: Disch w/ Home Health Serv Discharge Time: > 30 minutes Discharge Instructions DIET: Follow Instructions for: Diabetic Diet Activities you can perform: Regular-No Restrictions Follow up Referrals: Cardiology PCP Follow-up - 1 Week New Medications: Albuterol 18 GM Inh (Ventolin Hfa 18 GM Inh) 90 Mcg/Act Aer 2 PUFF INH Q4-6H PRN SHORTNESS OF BREATH #1 Ref 3 INHALER Azithromycin (Azithromycin) 250 Mg Tab 250 MG PO DAILY Infection #5 Ref 0 TAB Budesonide-Formoterol Inh (Symbicort Inh) 160-4.5 Mcg/Act Aero 2 PUFF INH Q12HR #1 Ref 3 INHALER Furosemide (Lasix) 20 Mg Tab 20 MG PO BID Prevent Heart Failure #60 Ref 0 TAB Ipratropium HFA 12.9 GM Inh (Atrovent HFA 12.9 GM Inh) 17 Mcg/Act Aer 2 PUFF INH Q6HR PRN SHORTNESS OF BREATH #1 Ref 3 INHALER Oxygen (O2) (Oxygen (O2)) Inha 2 LITER REYNA.CANULA CONTINUOUS Oxygen Concentrator Portable Gaseous 2 L/min via Nasal Canula Continuous For 99 months Prevent Hypoxemia #4 CYLINDER Prednisone (Prednisone) 20 Mg Tab 20 MG PO DIRECTED 40 MG twice a day x 3 days, then 20 MG daily x 3 days, then 10 MG daily x 3 days Inflammation #11 Ref 0 TAB Carvedilol (Coreg) 3.125 Mg Tab 3.125 MG PO BID Blood Pressure Management #60 Ref 3 TAB Losartan (Cozaar) 25 Mg Tab 25 MG PO DAILY Blood Pressure Management #30 Ref 3 TAB Potassium Chloride Microencaps (Potassium Chloride Microencaps) 20 Meq Tab 20 MEQ PO Q12HR Electrolyte Replacement #60 TAB Tiotropium Inh (Spiriva Handihaler) 18 Mcg Cap 18 MCG INH DAILY Breathing Treatment #1 Ref 3 CAP Continued Medications: Aspirin (Aspirin) 325 Mg Tab 325 MG PO DAILY #30 Ref 0 TAB Bupropion HCl ER 12 HR (Wellbutrin SR 12 HR) 150 Mg Tab 150 MG PO DAILY Control Depression Ref 0 TAB Cholecalciferol (Vitamin D3) 2,000 Unit Cap 4000 UNITS PO DAILY Nutritional Supplement #1 Ref 0 BOTTLE Fluticasone-Salmeterol Inh (Advair Diskus Inh) 250-50 Mcg/Blist Aer 1 PUFF INH BID Rinse mouth after use. #1 Ref 0 INHALER Metformin (Metformin) 500 Mg Tab 500 MG PO BIDPC With meals Blood Sugar Management #60 Ref 0 TAB Simvastatin (Zocor) 20 Mg Tab 20 MG PO DAILY Cholesterol Management #30 Ref 0 TAB Discontinued Medications: Amlodipine (Amlodipine) 5 Mg Tab 5 MG PO DAILY Blood Pressure Management #30 Ref 0 TAB Atenolol (Atenolol) 50 Mg Tab 50 MG PO DAILY Blood Pressure Management #30 Ref 0 TAB Ipratropium-Albuterol Inh (Combivent Respimat Inh) 20-100 Custodial/Act Aero 2 PUFF INH QID PRN SHORTNESS OF BREATH #1 Ref 0 INHALER Radhames Sousa MD Aug 31, 2016 08:50
[2016-08-31] MEDS ORDERED: FUROSEMIDE 20 MG TAB PO SCH (09:00)
[2016-08-31] MEDS ORDERED: predniSONE 20 MG TAB PO SCH (09:00)
[2016-08-31] MEDS: TIOTROPIUM BROMIDE 18 MCG INH INH SCH (09:11)
[2016-08-31] MEDS: buPROPion HCL 150 MG SUSTAINED RELEASE TAB PO SCH (09:12)
[2016-08-31] MEDS: PRAVASTATIN SOD 40 MG TAB PO SCH (09:12)
[2016-08-31] MEDS: DOCUSATE SODIUM 50 MG/SENNA 8.6 MG TAB PO SCH (09:12)
[2016-08-31] MEDS: SODIUM CHLORIDE 0.9% FLUSH 10 ML FLUSH IV FLUSH SCH (09:13)
[2016-08-31] MEDS: BUDESONIDE-FORMOTEROL 160/4.5 MCG INHALER INH SCH (09:13)
[2016-08-31] MEDS: ASPIRIN 325 MG TAB PO SCH (09:13)
[2016-08-31] MEDS: CARVEDILOL 3.125 MG TAB PO SCH (09:14)
[2016-08-31] MEDS: POTASSIUM CHLORIDE 20 MEQ CONTROLLED RELEASE TAB PO SCH (09:14)
[2016-08-31] MEDS: LOSARTAN 25 MG TAB PO SCH (09:14)
[2016-08-31] MEDS ORDERED: OXYGENTANK NAS.CANULA (12:11)
[2016-08-31] MEDS: AZITHROMYCIN 250 MG TAB PO SCH (12:29)
--- NOTE | 2016-08-31 14:41 | ECHRPT ---
Indication: Heart Failure Indication: Heart Failure CONCLUSIONS The left ventricular systolic function is low normal with an estimated ejection fraction in the rang e of 50- 55%.[id number] mitral valve regurgitation. severe aortic valve stenosis.There is trace tricuspid valve regurgitation.The pulmonary valve is not well visualized. BP: 123 / 98 HR: 82 Rhythm: Sinus MEASUREMENTS (Male / Female) Normal Values Technical Quality:Good 2D ECHO LV Diastolic Diameter PLAX 5.8 cm 4.2 - 5.9 / 3.9 - 5.3 cm LV Systolic Diameter PLAX 4.5 cm IVS Diastolic Thickness 1.3 cm 0.6 - 1.0 / 0.6 - 0.9 cm LVPW Diastolic Thickness 1.3 cm 0.6 - 1.0 / 0.6 - 0.9 cm LV Relative Wall Thickness 0.5 RV Internal Dim ED PLAX 2.6 cm LVOT Diameter 2.0 cm M-MODE Aortic Root Diameter MM 3.9 cm LA Systolic Diameter MM 3.4 cm LA Ao Ratio MM 0.9 AV Cusp Separation MM 2.0 cm DOPPLER AV Peak Velocity 465.6 cm/s AV Peak Gradient 86.7 mmHg AV Mean Gradient 54.7 mmHg AV Velocity Time Integral 116.0 cm LVOT Peak Velocity 108.0 cm/s LVOT Peak Gradient 4.7 mmHg AV Area Cont Eq pk 0.7 cm MR Peak Velocity 446.0 cm/s MR Peak Gradient 79.6 mmHg Mitral E Point Velocity 82.4 cm/s Mitral A Point Velocity 121.0 cm/s Mitral E to A Ratio 0.7 LV E' Lateral Velocity 5.3 cm/s Mitral E to LV E' Lateral Ratio 15.7 LV E' Septal Velocity 5.0 cm/s Mitral E to LV E' Septal Ratio 16.6 TR Peak Velocity 181.5 cm/s TR Peak Gradient 13.2 mmHg PV Peak Velocity 144.0 cm/s PV Peak Gradient 8.3 mmHg FINDINGS Left Ventricle The left ventricular systolic function is low normal with an estimated ejection fraction in the rang e of 50- 55%. Right Ventricle Normal right ventricular size and systolic function. Left Atrium The left atrial size is normal. Right Atrium The right atrial size is normal. Atrial Septum Normal atrial septal thickness without atrial level shunting by limited color doppler interrogation. Aorta The aortic root and proximal ascending aorta are normal in size on limited imaging. Mitral Valve Arvvl-[id number] mitral valve regurgitation. Aortic Valve severe aortic valve stenosis. Tricuspid Valve There is trace tricuspid valve regurgitation. Pulmonary Valve The pulmonary valve is not well visualized. Vessels The inferior vena cava is normal in size. Pericardium No pericardial effusion. Mir Burns MD, FACC, [facility] (Electronically Signed) Final Date:31 August 2016 14:40
[2016-08-31] MEDS ORDERED: OXYGEN NAS.CANULA (14:56)
--- NOTE | 2016-08-31 14:59 | PD.CARD.PN ---
Subjective Subjective Remarks alert in nad Objective Vital Signs / I&O Vital Signs Date Time Temp Pulse Resp B/P Pulse Ox O2 Delivery O2 Flow Rate FiO2 08/31/16 14:08 66 08/31/16 13:09 72 08/31/16 12:00 70 08/31/16 11:39 96 Nasal Cannula 3.00 08/31/16 11:37 98.4 70 22 150/91 96 08/31/16 11:00 70 08/31/16 10:08 4.00 08/31/16 10:00 68 08/31/16 09:00 62 08/31/16 08:00 96 Nasal Cannula 3.00 08/31/16 08:00 60 08/31/16 08:00 98.4 74 24 143/77 96 08/31/16 07:38 97 Nasal Cannula 3.00 08/31/16 07:00 60 08/31/16 06:00 58 08/31/16 05:00 67 08/31/16 04:04 67 08/31/16 04:00 98.1 61 22 148/87 96 08/31/16 03:49 98 Nasal Cannula 2.00 08/31/16 03:00 67 08/31/16 02:00 66 08/31/16 01:00 65 08/31/16 00:00 70 08/31/16 00:00 98.0 64 24 146/77 98 08/30/16 23:30 94 Nasal Cannula 2.00 08/30/16 23:00 67 08/30/16 22:00 67 08/30/16 21:00 68 08/30/16 20:13 92 Nasal Cannula 3.00 08/30/16 20:00 98.2 78 20 139/82 94 08/30/16 20:00 94 Nasal Cannula 2.00 08/30/16 20:00 70 08/30/16 19:00 78 08/30/16 19:00 71 08/30/16 18:00 75 08/30/16 17:22 96 Nasal Cannula 2.00 08/30/16 17:00 73 08/30/16 16:00 75 08/30/16 15:00 98.4 80 21 146/79 93 08/30/16 15:00 73 08/30/16 15:00 93 Nasal Cannula 3.00 Humidified I/O 08/30/16 08/30/16 08/30/16 08/31/16 08/31/16 08/31/16 07:00 15:00 23:00 07:00 15:00 23:00 Intake Total 835 ml 720 ml 420 ml Output Total 650 ml 2025 ml 1100 ml Balance 185 ml -1305 ml -680 ml Intake Oral 835 ml 720 ml 420 ml Output Urine Total 650 ml 2025 ml 1100 ml # Bowel Movements 0 Laboratory GENERAL: SKIN: Warm and dry. HEAD: Normocephalic. EYES: No scleral icterus. No injection or drainage. NECK: Supple, trachea midline. No JVD or lymphadenopathy. CARDIOVASCULAR: Regular rate and rhythm without murmurs, gallops, or rubs. RESPIRATORY: Breath sounds equal bilaterally. No accessory muscle use. GASTROINTESTINAL: Abdomen soft, non-tender, nondistended. MUSCULOSKELETAL: No cyanosis, or edema. BACK: Nontender without obvious deformity. No CVA tenderness. Laboratory Tests Test 08/31/16 05:42 White Blood Count 12.9 TH/MM3 Red Blood Count 4.21 MIL/MM3 Hemoglobin 12.9 GM/DL Hematocrit 39.3 % Mean Corpuscular Volume 93.4 FL Mean Corpuscular Hemoglobin 30.7 PG Mean Corpuscular Hemoglobin 32.9 % Concent Red Cell Distribution Width 13.7 % Platelet Count 199 TH/MM3 Mean Platelet Volume 8.0 FL Neutrophils (%) (Auto) 91.5 % Lymphocytes (%) (Auto) 5.8 % Monocytes (%) (Auto) 2.7 % Eosinophils (%) (Auto) 0.0 % Basophils (%) (Auto) 0.0 % Neutrophils # (Auto) 11.8 TH/MM3 Lymphocytes # (Auto) 0.8 TH/MM3 Monocytes # (Auto) 0.3 TH/MM3 Eosinophils # (Auto) 0.0 TH/MM3 Basophils # (Auto) 0.0 TH/MM3 CBC Comment DIFF FINAL Differential Comment Sodium Level 140 MEQ/L Potassium Level 4.8 MEQ/L Chloride Level 98 MEQ/L Carbon Dioxide Level 35.2 MEQ/L Anion Gap 7 MEQ/L Blood Urea Nitrogen 35 MG/DL Creatinine 1.17 MG/DL Estimat Glomerular Filtration 61 ML/MIN Rate Random Glucose 157 MG/DL Calcium Level 9.8 MG/DL B-Type Natriuretic Peptide 306 PG/ML Assessment and Plan Problem List: (1) CHF (congestive heart failure) (2) COPD exacerbation (3) Non-ST elevation HI (NSTEMI) (4) Diabetes mellitus, type 2 (5) Hypoxemia (6) Respiratory distress (7) Aortic stenosis Assessment and Plan 1.) - severe but he is assymptomatic, ok to dc from cv standpoint, f/u with me in office noel; d/w patient and nurse Problem Qualifiers (1) CHF (congestive heart failure): Qualified Code: I50.9 - Congestive heart failure, unspecified congestive heart failure chronicity, unspecified congestive heart failure type Mir Burns MD Aug 31, 2016 14:59
== END 2016-08-31 18:15 | disposition home health service (06) | DRG 190 ==
LOC: NEPC 12:45 → NEDA 18:23 → HCIN 21:47
PROVIDERS: ADMIT Hospitalist; ATTEND Hospitalist
PROC: 5A09457 Assistance with Respiratory Ventilation, 24-96 Consecutive Hours, Continuous Positive Airway Pressure (ICD-10-PCS; principal; 2016-08-29)
DX: J44.1 Chronic obstructive pulmonary disease with (acute) exacerbation (principal); I21.4 Non-ST elevation (NSTEMI) myocardial infarction; I11.0 Hypertensive heart disease with heart failure; I50.9 Heart failure, unspecified; I35.0 Nonrheumatic aortic (valve) stenosis; E87.1 Hypo-osmolality and hyponatremia; E11.9 Type 2 diabetes mellitus without complications; E78.5 Hyperlipidemia, unspecified; G47.33 Obstructive sleep apnea (adult) (pediatric); F17.210 Nicotine dependence, cigarettes, uncomplicated
CPT/HCPCS: 36600; 71010; 80048; 80076; 81001; 82550; 82805; 82948; 83735; 83880; 84484; 85025; 93005; 93306; 94002; 94620; 94640; 94664; 96374; J0330; J1644; J1815; J1940; J2920; J2930; J7512; J7613

== ENCOUNTER → 2016-09-23 | Outpatient (CLI) | payer MEDICARE, OTHER ==
[~2016-09-23] MED LIST: ADVA250A INH; ASPI325T PO; AZIT250T3 PO; BUPR150CR PO; CARV3.125 PO; COZA25TA PO; FURO1TAB62 PO; IPRA17I INH; METF500T PO; OXYGEN NAS.CANULA; POTA20TA5 PO; PRED20 PO; SPIRCAP INH; SYMB160A INH; TRIA1CAP6 PO; VENTAER INH; VITA2000 PO; ZOCO20TA PO
--- NOTE | 2016-10-04 10:52 | RSPPFT ---
DATE OF PROCEDURE: 09/23/16 COMMENTS: VOLUMES DYNAMIC: FVC normal; FEV1 moderately reduced. STATIC: TLC normal; RV and FRC mildly increased. FLOWS: FEV1% moderately reduced, FEF 25-75 severely reduce. DIFFUSION; Moderately reduced. FLOW VOLUME LOOP: Pattern of variable intrathoracic airways obstruction. IMPRESSION: Moderately severe obstructive ventilatory defect with reduction in diffusion. Airways resistance is increased. There is minimal change post-bronchodilator.
== END ==
LOC: HRSP 10:43
PROVIDERS: ATTEND Internal Medicine
DX: J44.9 Chronic obstructive pulmonary disease, unspecified (principal)
CPT/HCPCS: 94060; 94620; 94726; 94729

== ENCOUNTER 2016-12-20 10:22 | Day surgery (SDC) | payer MEDICARE, OTHER ==
[~2016-12-20] VITALS: Ht 170.2 cm; Wt 105.4 kg
[2016-12-20] MEDS ORDERED: IOHEXOL 350 MG/ML 50 ML BTL (for Cath Lab) OTHER ONE (10:23)
[2016-12-20] MEDS ORDERED: ASPIRIN 81 MG CHEW TAB PO SCH (11:15)
[2016-12-20 11:24] LABS: AUTOMATED NEUTROPHIL # 5.4 TH/MM3 (1.8-7.7); BASOPHIL # 0.1 TH/MM3 (0-0.2); BASOPHIL % 0.8 % (0.0-2.0); EOSINOPHIL # 0.2 TH/MM3 (0-0.4); EOSINOPHIL % 2.2 % (0.0-4.0); HEMATOCRIT 39.4 % (39.0-51.0); HEMO FLAGS DIFF FINAL; LYMPH % 23.1 % (9.0-44.0); LYMPHOCYTE # 1.9 TH/MM3 (1.0-4.8); MEAN CELL VOLUME 92.6 FL (80.0-100.0); MEAN CORPUSCULAR HEMOGLOBIN 31.2 PG (27.0-34.0); MEAN CORPUSCULAR HGB CONC 33.7 % (32.0-36.0); MONO % 7.6 % (0.0-8.0); NEUT % 66.3 % (16.0-70.0); PLATELET COUNT 170 TH/MM3 (150-450); RED BLOOD COUNT 4.25 MIL/MM3 (4.50-5.90); RED CELL DISTRIBUTION WIDTH 13.6 % (11.6-17.2); WHITE BLOOD COUNT 8.1 TH/MM3 (4.0-11.0)
[2016-12-20 11:37] VITALS: BP 166/93; PULSE 98; RESP 20; TEMP 98.1; O2SAT 94
[2016-12-20 11:50] LABS: BICARBONATE 30.1 MEQ/L (21.0-32.0)
[2016-12-20 11:56] LABS: POTASSIUM 5.2 MEQ/L (3.5-5.1)
[2016-12-20] MEDS ORDERED: NITROGLYCERIN INJ 5 ML ONE (12:24)
[2016-12-20] MEDS ORDERED: MIDAZOLAM HCL 2 MG/2 ML VIAL ONE (12:24)
[2016-12-20] MEDS ORDERED: HEPARIN-NS/PF INJ 500 ML ONE (12:25)
[2016-12-20 12:44] LABS: PROTHROMBIN TIME - PATIENT 11.1 SEC (9.8-11.6)
[2016-12-20] MEDS ORDERED: BACITRACIN OINT 0.9 GM PKT TOP ONE (14:15)
[2016-12-20] MEDS ORDERED: SODIUM CHLORIDE 0.9% FLUSH 10 ML FLUSH PRN (14:15)
[2016-12-20] MEDS ORDERED: MISC INFORMATION XX ONE (14:15)
--- NOTE | 2016-12-20 16:14 | MA ---
cc: SERGO BROWNLEE M.D. DATE 12/20/2016 PROCEDURE Left heart catheterization, right heart catheterization INDICATION Preop for aortic valve replacement, diabetes mellitus, congestive heart failure, non-ST elevation myocardial infarction. [place] [employer] class III. DETAILS OF PROCEDURE The patient brought to the cardiac catheterization laboratory, prepped and draped in the usual sterile fashion. 10 cc of 1% lidocaine was used to locally anesthetize the right common femoral artery. A 4-Kyrgyz sheath successfully placed in the right common femoral artery. A 5-Kyrgyz sheath placed in the right common femoral vein. Right heart catheterization performed first with the following findings. The pulmonary capillary wedge pressure 24/23/19. PA pressure 45/22/33. RV pressure 43/9/11. RA pressure 10/7/6. The cardiac output by Danilo is 5.7 liters per minute. Cardiac index by Danilo 2.6 liters per meter squared per minute. SVR 1307 dynes. Femoral artery sat on room air 97.5%. PA sat on room air 71.4%. And RA sat on room air 74.5%. A 4-Kyrgyz JR-4 and JL-5 diagnostic catheters were then used to perform left heart catheterization. Note I was not able to cross the aortic valve with a 0.035 floppy tipped Bentson wire using the JR-4 diagnostic catheter and a angled pigtail catheter. The aortic valve appear to be densely fibrocalcific fluoroscopically. There appeared to be a very strong jet that was noticeably pushing the catheter and the wire away from the aortic valve os on fluro. The right coronary artery is dominant. It is fibrocalcific fluoroscopically in the proximal segment. It is occluded just at the RV branch. There is SHRUTI I to II flow into the mid to distal right coronary artery by right to right collaterals. I do not see an antegrade channel. There is definitely a filling gap of about 12 mm. The left main coronary artery is long with an ostial proximal 20-30% stenosis. It is a large vessel probably 6-7 mm in maximal diameter. The left circumflex is a large vessel, mild diffuse disease in the proximal segment. It gives off a medium to large size obtuse marginal vessel which bifurcates in the proximal segment and both branches of the bifurcation approach the apex. There is mild diffuse disease in this vessel up to 20% angiographically. Beyond this marginal vessel the AV groove left circumflex vessel is a small vessel supplying a small posterolateral artery with no obvious significant obstructive disease. There is a ramus intermedius vessel which is very tortuous and in the GRAVES caudal view actually projects into the plane outward of the plane and is very foreshortened but I do not see any obvious stenosis. The LAD is transapical. There is mild diffuse disease in the proximal segment up to 10-20% angiographically. There are grade 1-2 collaterals to the right ALEC and right PDA seen in the FRISIAN cranial view. There appears to be occlusion at the very distal right coronary artery. CONCLUSION 1. Angiographically severe one-vessel coronary artery disease with occluded right coronary as detailed above with [id number] collaterals to the right ALEC PDA. 2. Left ventriculography not performed due to inability to cross the aortic valve with a 0.035 straight tipped floppy Bentson wire using a 4 Kyrgyz JR-4 diagnostic catheter and an angled pigtail catheter. 3. Severe aortic valve stenosis by echo Doppler analysis and note 20-30% ostial proximal left main disease as detailed above. I advised the patient myself personally to hold his metformin / Glucophage for 48 hours post procedure. He will follow up with me tomorrow in the office on December 21, 2016. MD NIMA Willams/KAM /1:38 PM /3:39 PM
[2016-12-20] MEDS ORDERED: SODIUM CHLORIDE 0.9% FLUSH 10 ML FLUSH SCH (21:00)
--- NOTE | 2016-12-21 15:42 | EKG ---
Date Performed: 12/20/2016 Time Performed: 11:24:32 PTAGE: 75 years EKG: Sinus rhythm with borderline 1st degree A-V block. Possible left anterior fascicular block Inferior Q waves Abnor mal ECG PREVIOUS TRACING : 08/29/2016 17.39 Compared to the previous tracing inferior Q waves present DOCTOR: Soraya Solis Interpretating Date/Time 12/21/2016 15:41:29
== END 2016-12-20 16:33 | disposition home or self-care (01) ==
LOC: HDOC 10:22 → HDIC 10:22 → HDOC 16:33
PROVIDERS: ATTEND Internal Medicine Interventional Cardiology
DX: I25.10 Atherosclerotic heart disease of native coronary artery without angina pectoris (principal); I35.0 Nonrheumatic aortic (valve) stenosis; I50.9 Heart failure, unspecified; I25.2 Old myocardial infarction; I42.9 Cardiomyopathy, unspecified; E11.9 Type 2 diabetes mellitus without complications; J44.9 Chronic obstructive pulmonary disease, unspecified; Z87.891 Personal history of nicotine dependence; Z79.84 Long term (current) use of oral hypoglycemic drugs; Z79.82 Long term (current) use of aspirin; Z79.51 Long term (current) use of inhaled steroids; Z79.899 Other long term (current) drug therapy
CPT/HCPCS: 80048; 82810; 85025; 85610; 93005; 93456; C1769; C1893; J1644; J2250; Q9967

== ENCOUNTER 2017-11-25 14:53 | Observation (INO) ==
[2017-11-25 15:53] LABS: Baso % (Auto) 0.6 % (0.0-2.0); Eos # (Auto) 0.1 th/mm3 (0.0-0.4); Eos % (Auto) 1.2 % (0.0-4.0); Hematocrit 41.6 % (39.0-51.0); Hemoglobin 14.1 gm/dL (13.0-17.0); Lymph # (Auto) 1.3 th/mm3 (1.0-4.8); Lymph % (Auto) 16.5 % (9.0-44.0); Mean Corpuscular HGB Conc 33.8 % (32.0-36.0); Mean Corpuscular Hemoglobin 31.7 pg (27.0-34.0); Mean Corpuscular Volume 93.9 fL (80.0-100.0); Mean Platelet Volume 8.8 fL (7.0-11.0); Mono # (Auto) 0.6 th/mm3 (0.0-0.9); Mono % (Auto) 7.4 % (0.0-8.0); Neut # (Auto) 5.8 th/mm3 (1.8-7.7); Neut % (Auto) 74.3 % (16.0-70.0); Platelet Count 134 th/mm3 (150-450); Red Blood Count 4.44 mil/mm3 (4.50-5.90); Red Cell Distribution Width 15.7 % (11.6-17.2); White Blood Count 7.7 th/mm3 (4.0-11.0)
[2017-11-25 15:59] LABS: Activated Partial Thrombo Time 55.5 sec (24.3-30.1); Prothrombin Time 72.4 sec (9.8-11.6)
[2017-11-25 16:10] LABS: Calcium 8.9 mg/dL (8.5-10.1); Carbon Dioxide 30.9 meq/L (21.0-32.0); Potassium 4.3 meq/L (3.5-5.1)
--- NOTE | 2017-11-25 16:14 | ED ---
HPI General Chief Complaint: Recheck/Abnormal Lab/Rx Stated Complaint: Doctor sent Time Seen by Provider: 11/25/17 15:19 Source: patient Mode of arrival: ambulatory Limitations: no limitations History of Present Illness HPI narrative: 76-year-old male with a history of dementia that presents to the ED for evaluation of abnormal Coumadin level. Per patient she is Dr. Burns told him that his Coumadin level was too high to come here to the ED. Apparently he had this checked yesterday and per patient he was in the sevens. Per patient this never happened before. He was recently here this week for evaluation of altered mental status and what appears to be diagnosis of pneumonia. At the time patient did want to be admitted although he was offered admission but he declined. Patient is unclear if he is taking any antibiotics for this. Patient himself states that his doctor did raise his Coumadin level but overall cannot really get a good answer from him. He does appear to be somewhat of a poor historian. He denies any pain. No bruising. No bleeding of any kind. He denies taking any more of his medications. Related Data Home Medications Medication Instructions Recorded Confirmed albuterol sulfate 2 puff INHALATION Q6H PRN 11/21/17 11/25/17 fluticasone-salmeterol 2 inh INHALATION BID 11/21/17 11/25/17 metformin 500 mg PO BID 11/21/17 11/25/17 potassium chloride 10 meq PO DAILY 11/21/17 11/25/17 bupropion HCl 150 mg PO BID 11/25/17 11/25/17 cholecalciferol (vitamin D3) 1,000 unit PO DAILY 11/25/17 11/25/17 [Vitamin D3] digoxin [Lanoxin] 0.125 mg PO DAILY 11/25/17 11/25/17 ferrous sulfate [Iron (ferrous 325 mg PO DAILY 11/25/17 11/25/17 sulfate)] furosemide [Lasix] 40 mg PO DAILY 11/25/17 11/25/17 losartan 25 mg PO DAILY 11/25/17 11/25/17 metoprolol tartrate 25 mg PO DAILY 11/25/17 11/25/17 simvastatin 40 mg PO QPM 11/25/17 11/25/17 tiotropium bromide [Spiriva with 1 cap INHALATION DAILY 11/25/17 11/25/17 HandiHaler] warfarin 2 mg PO DAILY 11/25/17 11/25/17 Previous Rx's Medication Instructions Recorded levofloxacin [Levaquin] 750 mg PO DAILY 10 Days #10 tab 11/21/17 Allergies Allergy/AdvReac Type Severity Reaction Status Date / Time No Known Allergies Allergy Uncoded 08/29/16 13:04 Review of Systems ROS: all other systems reviewed are negative [facility] Medical History Medical History Atrial fibrillation (Acute) Chronic obstructive pulmonary disease (Acute) Congestive heart failure (Acute) Depression (Acute) Diabetes (Acute) Hyperlipidemia (Acute) Hypertension (Acute) Surgical History Surgical History Heart valve replaced (Acute) Hx of tonsillectomy (Acute) Social History Social History Substance History: No History of Abuse Second Hand Smoke Exposure: Yes Smoking Status: Former smoker Tobacco Type: Cigarettes How Often Do You Have a Drink Containing Alcohol: 2 to 3 times a week Recent Travel in [facility] within the Last 8 Weeks: No Recent Out of Country Travel within the Last 8 Weeks: No Immunization History Tetanus Immunization: <5 Years Exam Narrative Exam Narrative: GENERAL: Well appearing SKIN: Focused skin assessment warm/dry. HEAD: Atraumatic. Normocephalic. EYES: Pupils equal and round. No scleral icterus. No injection or drainage. ENT: No nasal bleeding or discharge. Mucous membranes pink and moist. Tongue is midline. No uvuladeviation. NECK: Trachea midline. No JVD. CARDIOVASCULAR: Regular rate and rhythm. No murmur appreciated. RESPIRATORY: No accessory muscle use. Clear to auscultation. Breath sounds equal bilaterally. GASTROINTESTINAL: Abdomen soft, non-tender, nondistended. Hepatic and splenic margins not palpable. MUSCULOSKELETAL: No obvious deformities. No clubbing. No cyanosis. No edema. Full range of motion of the upper and lower extremities bilaterally. 2+ pulses bilaterally. NEUROLOGICAL: Awake and alert. No obvious cranial nerve deficits. Motor grossly within normal limits. Normal speech. PSYCHIATRIC: Appropriate mood and affect; insight and judgment normal. Course Initial Documented Vital Signs Temperature 98.6 F 11/25/17 15:09 Pulse Rate 100 H 11/25/17 15:09 Blood Pressure 170/57 H 11/25/17 15:09 Pulse Oximetry 94 L 11/25/17 15:09 Last Documented Vital Signs Temperature 98.0 F 11/26/17 11:53 Pulse Rate 80 11/26/17 11:53 Respiratory Rate 16 11/26/17 11:53 Blood Pressure 166/78 H 11/26/17 11:53 Pulse Oximetry 95 11/26/17 11:53 Medical Decision Making [facility] Narrative Medical decision making narrative: 76-year-old male that presents to the ED for evaluation of abnormal Coumadin level. Patient was properly examined and was found to have signs and symptoms of unclear etiology. Patient himself is not a good historian. Patient was seen here earlier this week and had a normal Coumadin level actually was lower than 2. Labs were ordered and did show a 7.2 elevated Coumadin level. Otherwise unremarkable. actually came to the room and was concerned about the patient's mental status. From my interview with the patient he does appear to be altering when initially asked if he took any more of his medications he told me that he took 3 pills instead of what apparently his doctor told him was 3 mg. I do suspect that the patient may be taking more of his medications secondary to altered mental status versus dementia. is very concerned as he is mentation has been completely different to what he used to be. Patient did had a pneumonia recently and could be the cause of the symptoms. I do recommend admission for further evaluation. Patient agree with this. Patient will start Rocephin and azithromycin. Patient had chest x-ray ordered again as well as UA. Chest x- ray did show the left lower lung consolidation. Case discussed with Dr. Nunez who agrees the patient should be admitted. Case discussed with myself agrees to admission. Medical Screen Exam Complete: Yes Emergency Medical Condition: Yes Differential Diagnosis Differential Diagnosis: Altered mental status versus abnormal labs versus pneumonia Medical Records Medical records reviewed: Yes I reviewed the patient's medical records. Lab Data Lab results reviewed: Yes I reviewed the patient's lab results. Lab results narrative: INR 7.2 Result diagrams: 11/26/17 06:10 11/26/17 06:10 Lab Results 11/25/17 11/25/17 11/25/17 Range/Units 15:30 15:30 15:30 WBC 7.7 (4.0-11.0) th/mm3 RBC 4.44 L (4.50-5.90) mil/mm3 Hgb 14.1 (13.0-17.0) gm/dL Hct 41.6 (39.0-51.0) % MCV 93.9 (80.0-100.0) fL MCH 31.7 (27.0-34.0) pg MCHC 33.8 (32.0-36.0) % RDW 15.7 (11.6-17.2) % Plt Count 134 L (150-450) th/mm3 MPV 8.8 (7.0-11.0) fL Neut % (Auto) 74.3 H (16.0-70.0) % Lymph % (Auto) 16.5 (9.0-44.0) % [place] % (Auto) 7.4 (0.0-8.0) % Eos % (Auto) 1.2 (0.0-4.0) % Baso % (Auto) 0.6 (0.0-2.0) % Neut # (Auto) 5.8 (1.8-7.7) th/mm3 Lymph # (Auto) 1.3 (1.0-4.8) th/mm3 [place] # (Auto) 0.6 (0.0-0.9) th/mm3 Eos # (Auto) 0.1 (0.0-0.4) th/mm3 Baso # (Auto) 0.0 (0.0-0.2) th/mm3 WBC Differential . Differential Comment Auto diff final PT 72.4 H D (9.8-11.6) sec INR 7.2 H* Ratio APTT 55.5 H (24.3-30.1) sec Sodium 141 (136-145) meq/L Potassium 4.3 (3.5-5.1) meq/L Chloride 103 (98-107) meq/L Carbon Dioxide 30.9 (21.0-32.0) meq/L Anion Gap 7 (5-15) meq/L BUN 15 (7-18) mg/dL Creatinine 1.20 (0.60-1.30) mg/dL Estimated GFR 59 L (>89) mL/min POC Glucose (68-110) mg/dl Random Glucose 134 H (74-106) mg/dL Calcium 8.9 (8.5-10.1) mg/dL Total Bilirubin (0.2-1.0) mg/dL AST (15-37) U/L ALT (12-78) U/L Alkaline Phosphatase (45-117) U/L Total Protein (6.4-8.2) g/dL Albumin (3.4-5.0) g/dL Digoxin (0.8-2.0) ng/mL 11/25/17 11/26/17 11/26/17 Range/Units 15:30 06:10 06:10 WBC 7.1 (4.0-11.0) th/mm3 RBC 4.15 L (4.50-5.90) mil/mm3 Hgb 13.2 (13.0-17.0) gm/dL Hct 39.5 (39.0-51.0) % MCV 95.1 (80.0-100.0) fL MCH 31.8 (27.0-34.0) pg MCHC 33.4 (32.0-36.0) % RDW 15.6 (11.6-17.2) % Plt Count 124 L (150-450) th/mm3 MPV 8.6 (7.0-11.0) fL Neut % (Auto) 71.0 H (16.0-70.0) % Lymph % (Auto) 17.0 (9.0-44.0) % [place] % (Auto) 9.4 H (0.0-8.0) % Eos % (Auto) 2.0 (0.0-4.0) % Baso % (Auto) 0.6 (0.0-2.0) % Neut # (Auto) 5.0 (1.8-7.7) th/mm3 Lymph # (Auto) 1.2 (1.0-4.8) th/mm3 [place] # (Auto) 0.7 (0.0-0.9) th/mm3 Eos # (Auto) 0.1 (0.0-0.4) th/mm3 Baso # (Auto) 0.0 (0.0-0.2) th/mm3 WBC Differential . Differential Comment Auto diff final PT 60.1 H D (9.8-11.6) sec INR 6.0 H* Ratio APTT (24.3-30.1) sec Sodium (136-145) meq/L Potassium (3.5-5.1) meq/L Chloride (98-107) meq/L Carbon Dioxide (21.0-32.0) meq/L Anion Gap (5-15) meq/L BUN (7-18) mg/dL Creatinine (0.60-1.30) mg/dL Estimated GFR (>89) mL/min POC Glucose (68-110) mg/dl Random Glucose (74-106) mg/dL Calcium (8.5-10.1) mg/dL Total Bilirubin (0.2-1.0) mg/dL AST (15-37) U/L ALT (12-78) U/L Alkaline Phosphatase (45-117) U/L Total Protein (6.4-8.2) g/dL Albumin (3.4-5.0) g/dL Digoxin 1.0 (0.8-2.0) ng/mL 11/26/17 11/26/17 11/26/17 Range/Units 06:10 08:26 11:26 WBC (4.0-11.0) th/mm3 RBC (4.50-5.90) mil/mm3 Hgb (13.0-17.0) gm/dL Hct (39.0-51.0) % MCV (80.0-100.0) fL MCH (27.0-34.0) pg MCHC (32.0-36.0) % RDW (11.6-17.2) % Plt Count (150-450) th/mm3 MPV (7.0-11.0) fL Neut % (Auto) (16.0-70.0) % Lymph % (Auto) (9.0-44.0) % [place] % (Auto) (0.0-8.0) % Eos % (Auto) (0.0-4.0) % Baso % (Auto) (0.0-2.0) % Neut # (Auto) (1.8-7.7) th/mm3 Lymph # (Auto) (1.0-4.8) th/mm3 [place] # (Auto) (0.0-0.9) th/mm3 Eos # (Auto) (0.0-0.4) th/mm3 Baso # (Auto) (0.0-0.2) th/mm3 WBC Differential Differential Comment PT 61.3 H (9.8-11.6) sec INR 6.1 H* Ratio APTT (24.3-30.1) sec Sodium 140 (136-145) meq/L Potassium 4.3 (3.5-5.1) meq/L Chloride 104 (98-107) meq/L Carbon Dioxide 30.5 (21.0-32.0) meq/L Anion Gap 6 (5-15) meq/L BUN 13 (7-18) mg/dL Creatinine 1.00 (0.60-1.30) mg/dL Estimated GFR 73 L (>89) mL/min POC Glucose 93 (68-110) mg/dl Random Glucose 97 (74-106) mg/dL Calcium 9.0 (8.5-10.1) mg/dL Total Bilirubin 0.6 (0.2-1.0) mg/dL AST 16 (15-37) U/L ALT 15 (12-78) U/L Alkaline Phosphatase 67 (45-117) U/L Total Protein 6.9 (6.4-8.2) g/dL Albumin 3.2 L (3.4-5.0) g/dL Digoxin (0.8-2.0) ng/mL 11/26/17 Range/Units 11:52 WBC (4.0-11.0) th/mm3 RBC (4.50-5.90) mil/mm3 Hgb (13.0-17.0) gm/dL Hct (39.0-51.0) % MCV (80.0-100.0) fL MCH (27.0-34.0) pg MCHC (32.0-36.0) % RDW (11.6-17.2) % Plt Count (150-450) th/mm3 MPV (7.0-11.0) fL Neut % (Auto) (16.0-70.0) % Lymph % (Auto) (9.0-44.0) % [place] % (Auto) (0.0-8.0) % Eos % (Auto) (0.0-4.0) % Baso % (Auto) (0.0-2.0) % Neut # (Auto) (1.8-7.7) th/mm3 Lymph # (Auto) (1.0-4.8) th/mm3 [place] # (Auto) (0.0-0.9) th/mm3 Eos # (Auto) (0.0-0.4) th/mm3 Baso # (Auto) (0.0-0.2) th/mm3 WBC Differential Differential Comment PT (9.8-11.6) sec INR Ratio APTT (24.3-30.1) sec Sodium (136-145) meq/L Potassium (3.5-5.1) meq/L Chloride (98-107) meq/L Carbon Dioxide (21.0-32.0) meq/L Anion Gap (5-15) meq/L BUN (7-18) mg/dL Creatinine (0.60-1.30) mg/dL Estimated GFR (>89) mL/min POC Glucose 160 H (68-110) mg/dl Random Glucose (74-106) mg/dL Calcium (8.5-10.1) mg/dL Total Bilirubin (0.2-1.0) mg/dL AST (15-37) U/L ALT (12-78) U/L Alkaline Phosphatase (45-117) U/L Total Protein (6.4-8.2) g/dL Albumin (3.4-5.0) g/dL Digoxin (0.8-2.0) ng/mL Imaging Data Attestation: I personally reviewed and interpreted this imaging study as follows : Radiologist's impression: Chest X-Ray 11/25/17 18:59 CONCLUSION: Slight CHF. Left lung nodule is again seen. Head CT 11/25/17 19:15 CONCLUSION: Slight chronic small vessel ischemic and atrophic changes. . Discharge Plan Discharge Disposition Patient Disposition: 30 Still Patient Discharge Details Diagnosis: Altered mental status, Warfarin-induced coagulopathy, Pneumonia Physicians Team ED Provider: Emmanuelle Garcia ED Midlevel Provider: Luis Varma Primary Care Provider: [facility],Physician [place] Attending Provider: Alie Orantes Status ED Status: Left Department Discharge Information Discharge Date/Time: 11/25/17 23:52
[2017-11-25 16:28] LABS: INR 7.2 Ratio
--- NOTE | 2017-11-25 19:40 | XR ---
EXAM DATE: 11/25/2017 7:28 PM EDT AGE/SEX: 76 years / Male INDICATIONS: Cough. Confusion. CLINICAL DATA: This is the patient's initial encounter. Patient reports that signs and symptoms have been present for 1 day and indicates a pain score of 0/10. MEDICAL/SURGICAL HISTORY: . Chronic obstructive pulmonary disease. CABG. COMPARISON: [facility] [place], CHEST 1V SINGLE AP, 11/21/2017. . FINDINGS: There is mild haziness to the perivascular structures most likely pulmonary edema. Slight cardiomegal y seen. Focal consolidation is not seen. There is evidence for prior median sternotomy. Left lung no dular density is again seen not changed. CONCLUSION: Slight CHF. Left lung nodule is again seen. Electronically signed by: Cori Christopher MD 11/25/2017 7:39 PM EDT
[2017-11-25] MEDS ORDERED: Azithromycin Inj 500 MG in Sodium Chlor 0.9% Inj 250 ML IV.SIG ONE (19:44)
[2017-11-25] MEDS ORDERED: Bisacodyl 10 MG Supp RECTAL PRN (20:21)
[2017-11-25] MEDS ORDERED: Acetaminophen 325 MG Tablet PO PRN (20:26)
--- NOTE | 2017-11-25 20:27 | CT ---
EXAM DATE: 11/25/2017 8:22 PM EDT AGE/SEX: 76 years / Male INDICATIONS: Altered mental status. CLINICAL DATA: This is the patient's initial encounter. Patient reports that signs and symptoms have been present for 1 day and indicates a pain score of 5/10. MEDICAL/SURGICAL HISTORY: Cardiovascular disease. Congestive heart failure. None. RADIATION DOSE: 56.35 CTDI (mGy) [place] [facility] [place]. . TECHNIQUE: CT of the head without contrast. Using automated exposure control and adjustment of the mA and/or kV according to patient size, radiation dose was kept as low as reasonably achievable to ob tain optimal diagnostic quality images. DICOM format image data is available electronically for revi ew and comparison. FINDINGS: There is no evidence for intracranial hemorrhage, mass effect, mass lesions, or edema. The visualize d bony structures appear intact. Slight degree of brain atrophy is seen. Slight periventricular whit e matter changes are seen nonspecific mostly consistent with chronic small vessel ischemic changes. There are no signs of acute infarction for technique. CONCLUSION: Slight chronic small vessel ischemic and atrophic changes. . Electronically signed by: Cori Christopher MD 11/25/2017 8:26 PM EDT
--- NOTE | 2017-11-25 20:32 | P.HPIM ---
History of Present Illness Primary Care Physician: Physician [facility] History of Present Illness: This is a 76-year-old male with PMH of Dementia, COPD, HTN, Hyperlipidemia, A. fib on Coumadin and DM who was referred to the ER by his Housing Management Representative, Dr. Burns, for evaluation of elevated INR. Pt is poor historian, appears to be confused at baseline. Does tell me he had blood work done yesterday and was called by the office today and told to come to the ER. Pt states he takes Coumadin "3 pills" a day, unclear if he is taking the prescribed 3mg or if he is taking 3mg x3 daily. INR currently 7.2. Recent eval in ER on 11/21/17 for AMS after noted increased confusion from baseline, found to have PNA, offered admission, however pt declined and d/c'd on Levaquin 750mg qd w[facility] Denies fever, chills, cough or chest pain at this time. On arrival, BP 170/57, HR 100, O2 sat 94% on RA, Afebrile. CBC unremarkable except for platelets 134, previously 133 on 11/21/2017. Chemistry essentially unremarkable. CXR with slight CHF, left lung nodule again seen, no focal consolidation. CT Head with no acute findings. - Diagnosis (1) Encephalopathy (2) PNA (pneumonia) (3) Supratherapeutic INR (4) CHF (congestive heart failure) (5) DM (diabetes mellitus) (6) A-fib Review of Systems PAST FAMILY HISTORY: Reviewed. No h/o DM or CAD All other systems reviewed negative except as stated [facility] - History History Provided By: Patient - Medical History Medical History: Medical History (Last Reviewed 11/25/17 @ 16:12 by CLAY López) Atrial fibrillation Chronic obstructive pulmonary disease Congestive heart failure Depression Diabetes Hyperlipidemia Hypertension - Surgical History Surgical History: Surgical History (Last Reviewed 11/25/17 @ 16:12 by CLAY López) Heart valve replaced Hx of tonsillectomy - Tobacco History Second Hand Smoke Exposure: No Smoking Status: Former smoker Tobacco Type: Cigarettes - Alcohol History How Often Do You Have a Drink Containing Alcohol: 2 to 4 times a month - Substance Use History Substance History: No History of Abuse - Travel History Recent Travel in the [facility] Within the Last 8 Weeks: No Recent Travel Out of the Country Within the Last 8 Weeks: No - Immunization History Tetanus Immunization: <5 Years Medications and Allergies Active Medications: Active Medications Azithromycin 500 mg/ Sodium (Chloride) 250 mls @ 250 mls/hr IV.SIG ONCE ONE Stop: 11/25/17 20:43 Allergies Allergy/AdvReac Type Severity Reaction Status Date / Time No Known Allergies Allergy Uncoded 08/29/16 13:04 Home Medications Medication Instructions Recorded Confirmed Type albuterol sulfate 2 puff INHALATION Q6H PRN 11/21/17 11/25/17 History fluticasone-salmeterol 2 inh INHALATION BID 11/21/17 11/25/17 History metformin 500 mg PO BID 11/21/17 11/25/17 History potassium chloride 10 meq PO DAILY 11/21/17 11/25/17 History bupropion HCl 150 mg PO BID 11/25/17 11/25/17 History cholecalciferol (vitamin D3) 1,000 unit PO DAILY 11/25/17 11/25/17 History [Vitamin D3] digoxin [Lanoxin] 0.125 mg PO DAILY 11/25/17 11/25/17 History ferrous sulfate [Iron (ferrous 325 mg PO DAILY 11/25/17 11/25/17 History sulfate)] furosemide [Lasix] 40 mg PO DAILY 11/25/17 11/25/17 History losartan 25 mg PO DAILY 11/25/17 11/25/17 History metoprolol tartrate 25 mg PO DAILY 11/25/17 11/25/17 History simvastatin 40 mg PO QPM 11/25/17 11/25/17 History tiotropium bromide [Spiriva with 1 cap INHALATION DAILY 11/25/17 11/25/17 History HandiHaler] warfarin 2 mg PO DAILY 11/25/17 11/25/17 History Exam Vital signs: Vital Signs 11/25/17 15:09 11/25/17 18:00 Temperature 98.6 F Pulse Rate 100 H 80 Respiratory Rate 18 Blood Pressure 170/57 H 190/90 H Pulse Oximetry 94 L 97 Intake & Output 11/25/17 11/25/17 11/26/17 06:59 18:59 06:59 Weight 86.183 kg Narrative: PE: GENERAL: Elderly white male in no acute distress. SKIN: Focused skin assessment warm and dry. HEENT: PERRLA, EOMI. No scleral icterus or conjunctival pallor. No lid lag or facial droop. CARDIOVASCULAR: Regular rate and rhythm. No obvious murmurs to auscultation. No chest tenderness to palpation. RESPIRATORY: No obvious rhonchi or wheezing. Clear to auscultation. Breath sounds equal bilaterally. GASTROINTESTINAL: Abdomen soft, non-tender, nondistended. BS normal. MUSCULOSKELETAL: Extremities without clubbing, cyanosis, or edema. No obvious deformities. NEUROLOGICAL: Awake, alert and oriented to person, place. No focal neurologic deficits. Moving both upper and lower extremities spontaneously. PSYCHIATRIC: Appropriate mood and affect. Insight and judgment normal. Results - Labs CBC & Chem 7: 11/25/17 15:30 11/25/17 15:30 Labs: Short CBC 11/25/17 Range/Units 15:30 WBC 7.7 (4.0-11.0) th/mm3 Hgb 14.1 (13.0-17.0) gm/dL Hct 41.6 (39.0-51.0) % Plt Count 134 L (150-450) th/mm3 BMP 11/25/17 15:30 Sodium 141 Potassium 4.3 Chloride 103 Carbon Dioxide 30.9 BUN 15 Creatinine 1.20 Calcium 8.9 - Imaging Impressions Chest X-Ray 11/25/17 18:59 CONCLUSION: Slight CHF. Left lung nodule is again seen. Head CT 11/25/17 19:15 CONCLUSION: Slight chronic small vessel ischemic and atrophic changes. . Caprini VTE Risk Assessment Caprini VTE Risk Assessment: Moderate/High Risk (score >= 2) VTE Pharmacological Exception Reason: Coagulopathy,INR elevated Caprini Risk Assessment Model: Point Value = 1 Point Value = 2 Point Value = 3 Point Value = 5 Age 41-60 Minor surgery BMI > 25 kg/m2 Swollen legs Varicose veins or History of unexplained or recurrent spontaneous Oral contraceptives or hormone replacement Sepsis (< 1 month) Serious lung disease, including pneumonia (< 1 month) Abnormal pulmonary function Acute myocardial infarction Congestive heart failure (< 1 month) History of inflammatory bowel disease Medical patient at bed rest Age 61-74 Arthroscopic surgery Major open surgery (> 45 min) Laparoscopic surgery (> 45 min) Malignancy Confined to bed (> 72 hours) Immobilizing plaster cast Central venous access Age >= 75 History of VTE Family history of VTE Factor V Leiden Prothrombin [id number] Lupus anticoagulant Anticardiolipin antibodies Elevated serum homocysteine Heparin-induced thrombocytopenia Other congenital or acquired thrombophilia Stroke (< 1 month) Elective arthroplasty Hip, pelvis, or leg fracture Acute spinal cord injury (< 1 month) Prophylaxis Regimen: Total Risk Factor Score Risk Level Prophylaxis Regimen 0-1 Low Early ambulation 2 Moderate Order ONE of the following: *Sequential Compression Device (SCD) *Heparin 5000 units SQ BID 3-4 Higher Order ONE of the following medications: *Heparin 5000 units SQ TID *Enoxaparin/Lovenox 40 mg SQ daily (WT < 150 kg, CrCl > 30 mL/min) *Enoxaparin/Lovenox 30 mg SQ daily (WT < 150 kg, CrCl > 10-29 mL/min) *Enoxaparin/Lovenox 30 mg SQ BID (WT < 150 kg, CrCl > 30 mL/min) AND/OR *Sequential Compression Device (SCD) 5 or more Highest Order ONE of the following medications: *Heparin 5000 units SQ TID (Preferred with Epidurals) *Enoxaparin/Lovenox 40 mg SQ daily (WT < 150 kg, CrCl > 30 mL/min) *Enoxaparin/Lovenox 30 mg SQ daily (WT < 150 kg, CrCl > 10-29 mL/min) *Enoxaparin/Lovenox 30 mg SQ BID (WT < 150 kg, CrCl > 30 mL/min) AND *Sequential Compression Device (SCD) Assessment and Plan - Assessment (1) Encephalopathy Code(s): G93.40 - Encephalopathy, unspecified Status: Acute (2) PNA (pneumonia) Code(s): J18.9 - Pneumonia, unspecified organism Status: Acute (3) Supratherapeutic INR Code(s): R79.1 - Abnormal coagulation profile Status: Acute (4) CHF (congestive heart failure) Code(s): I50.9 - Heart failure, unspecified Status: Acute (5) DM (diabetes mellitus) Code(s): E11.9 - Type 2 diabetes mellitus without complications Status: Acute (6) A-fib Code(s): I48.91 - Unspecified atrial fibrillation Status: Acute - Plan A/P: 1. Encephalopathy: Likely multifactorial-combination of underlying dementia w / recent PNA. CT Head w/ no acute findings, images reviewed. Neuro checks. PT for eval/tx. Consult Neurology as needed for further evaluation. 2. Supratherapeutic INR: INR 7.2, unclear if pt taking Coumadin appropriately or if due to recent antibiotics. No active bleeding noted, CT Head w/ no acute ICH. Repeat INR, hold Coumadin. 3. A-fib: Hold Coumadin as above, check Digoxin level 4. PNA: Recent eval 11/21/17 for AMS and PNA, CXR 11/21/17 w/ right basilar airspace disease, s/p Levaquin, CXR today w/ no focal consolidation, will hold further antibiotics at this time. DuoNeb prn. 5. CHF: Chronic. Echo 08/30/16 w/ EF 50-55%, CXR w/ no significant effusion, resume home medications, monitor I/O. 6. DVT Prophylaxis: Hold Coumadin due to elevated INR 7. Social work for d/c planning as needed 8. Case discussed w/ ER physician at length, labs/records/imaging reviewed by me
[2017-11-25] MEDS: Senna/Docusate Sodium 8.6/50 MG Tablet PO SCH (20:36)
[2017-11-25] MEDS ORDERED: Dextrose 50% in Water 50 ML Vial IV.PUSH PRN (20:43)
[2017-11-25] MEDS: Insulin NovoLOG Aspart Correctional Sugar Inj SQ SCH (21:03)
[2017-11-25] MEDS: buPROPion 150 MG 12 HR Tablet PO SCH (21:31)
[2017-11-26 07:11] LABS: Prothrombin Time 60.1 sec (9.8-11.6)
[2017-11-26 07:15] LABS: Baso % (Auto) 0.6 % (0.0-2.0); Eos # (Auto) 0.1 th/mm3 (0.0-0.4); Hematocrit 39.5 % (39.0-51.0); Hemoglobin 13.2 gm/dL (13.0-17.0); Lymph # (Auto) 1.2 th/mm3 (1.0-4.8); Mean Corpuscular HGB Conc 33.4 % (32.0-36.0); Mean Corpuscular Hemoglobin 31.8 pg (27.0-34.0); Mean Corpuscular Volume 95.1 fL (80.0-100.0); Mean Platelet Volume 8.6 fL (7.0-11.0); Mono # (Auto) 0.7 th/mm3 (0.0-0.9); Mono % (Auto) 9.4 % (0.0-8.0); Platelet Count 124 th/mm3 (150-450); Red Blood Count 4.15 mil/mm3 (4.50-5.90); Red Cell Distribution Width 15.6 % (11.6-17.2); White Blood Count 7.1 th/mm3 (4.0-11.0)
[2017-11-26 07:25] LABS: Albumin 3.2 g/dL (3.4-5.0); Anion Gap 6 meq/L (5-15); Aspartate Aminotransferase 16 U/L (15-37); Blood Urea Nitrogen 13 mg/dL (7-18); Carbon Dioxide 30.5 meq/L (21.0-32.0); Chloride 104 meq/L (98-107); Glomerular Filtration Rate 73 mL/min (>89); Glucose,Random 97 mg/dL (74-106); Potassium 4.3 meq/L (3.5-5.1); Sodium 140 meq/L (136-145)
[2017-11-26 07:26] LABS: Alanine Aminotransferase 15 U/L (12-78)
[2017-11-26 07:28] LABS: Alkaline Phosphatase 67 U/L (45-117); Total Protein 6.9 g/dL (6.4-8.2)
[2017-11-26] MEDS: Insulin NovoLOG Aspart Correctional Sugar Inj SQ SCH ×4 (08:35→21:44)
[2017-11-26] MEDS: Tiotropium Bromide 18 MCG/ACT Inhaler INH SCH (10:35)
[2017-11-26] MEDS: Furosemide 40 MG Tablet PO SCH (10:36)
[2017-11-26] MEDS: Budesonide-Formoterol 160/4.5 MCG 6 GM Inhaler INH SCH ×2 (10:36→21:41)
[2017-11-26] MEDS: Ferrous Sulfate 325 MG Tablet PO SCH (10:36)
[2017-11-26] MEDS: Digoxin 125 MCG Tablet PO SCH (10:36)
[2017-11-26] MEDS: Senna/Docusate Sodium 8.6/50 MG Tablet PO SCH ×2 (10:36→21:41)
[2017-11-26] MEDS: Metoprolol Tartrate 25 MG Tablet PO SCH (10:37)
[2017-11-26] MEDS: buPROPion 150 MG 12 HR Tablet PO SCH ×2 (10:37→21:41)
[2017-11-26] MEDS ORDERED: Phytonadione Inj 10 MG/ML Vial SQ ONE (10:47)
[2017-11-26 11:48] LABS: Prothrombin Time 61.3 sec (9.8-11.6)
[2017-11-26 11:57] LABS: INR 6.1 Ratio
--- NOTE | 2017-11-26 12:47 | P.PN ---
Subjective Interval history: Follow up Visit dementia, COPD, HTN, A. fib on Coumadin, DM, supratherapeutic INR. Patient seen and examined today. Reports he is doing okay and wanted to go home because he is to take care of his . States it is the year 1999, month is February. Reoriented patient. Denies pain and discomfort. Denies SOB / dyspnea. Denies chest pain, palpitations, headaches, dizziness. Denies fevers , chills, n/v/d. Denies dysuria. Physical Exam Vital signs: Vital Signs 11/25/17 15:09 11/25/17 18:00 11/25/17 20:35 Temperature 98.6 F Pulse Rate 100 H 80 95 H Respiratory Rate 18 20 Blood Pressure 170/57 H 190/90 H 175/86 H Pulse Oximetry 94 L 97 95 11/25/17 22:00 11/26/17 00:27 11/26/17 03:31 Temperature 98.2 F 98.4 F Pulse Rate 96 H 102 H 88 Respiratory Rate 20 18 17 Blood Pressure 174/76 H 222/121 H 171/86 H Pulse Oximetry 96 94 L 95 11/26/17 08:30 11/26/17 09:02 11/26/17 11:53 Temperature 98.7 F 98.0 F Pulse Rate 96 H 80 Respiratory Rate 16 16 Blood Pressure 189/103 H 166/78 H Pulse Oximetry 91 L 95 Intake & Output 11/25/17 11/26/17 11/26/17 18:59 06:59 18:59 Intake Total 450 / 450 0 / 0 Balance 450 / 450 0 / 0 Weight 86.183 kg 86.2 kg Intake: IV 350 / 350 Azithromycin Inj 500 MG In NS 250 / 250 Inj 250 ML @ 250 mls/hr IV.SIG ONCE ONE Rx#:[id number] Rocephin Inj 1,000 MG In NS Inj 100 / 100 100 ML @ 200 mls/hr IV.SIG ONCE ONE Rx#:[id number] Oral 100 / 100 0 / 0 Narrative: GENERAL: This is a well-nourished, well-developed patient, in no apparent distress. SKIN: Warm and dry. HEENT: Normocephalic. Pupils equal round and reactive. Nose without bleeding. Airway patent. NECK: Trachea midline. Supple. CARDIOVASCULAR: Irregular rate and rhythm without murmurs, gallops, or rubs. RESPIRATORY: Diminished bases. No wheezes, rales, or rhonchi. GASTROINTESTINAL: Abdomen soft, non-tender, nondistended. Bowel Sounds normoactive x4. MUSCULOSKELETAL: Extremities without clubbing, cyanosis, or edema. NEUROLOGICAL: Awake and alert. Oriented to person. No focal neuro deficit. Moves all extremities. Normal speech. Results - Labs CBC & Chem 7: 11/26/17 06:10 11/26/17 06:10 Laboratory Results - last 24 hr 11/25/17 11/25/17 11/25/17 15:30 15:30 15:30 WBC 7.7 RBC 4.44 L Hgb 14.1 Hct 41.6 MCV 93.9 MCH 31.7 MCHC 33.8 RDW 15.7 Plt Count 134 L MPV 8.8 Neut % (Auto) 74.3 H Lymph % (Auto) 16.5 [place] % (Auto) 7.4 Eos % (Auto) 1.2 Baso % (Auto) 0.6 Neut # (Auto) 5.8 Lymph # (Auto) 1.3 [place] # (Auto) 0.6 Eos # (Auto) 0.1 Baso # (Auto) 0.0 WBC Differential . Differential Comment Auto diff final PT 72.4 H D INR 7.2 H* APTT 55.5 H Sodium 141 Potassium 4.3 Chloride 103 Carbon Dioxide 30.9 Anion Gap 7 BUN 15 Creatinine 1.20 Estimated GFR 59 L POC Glucose Random Glucose 134 H Calcium 8.9 Total Bilirubin AST ALT Alkaline Phosphatase Total Protein Albumin Digoxin 11/25/17 11/26/17 11/26/17 15:30 06:10 06:10 WBC 7.1 RBC 4.15 L Hgb 13.2 Hct 39.5 MCV 95.1 MCH 31.8 MCHC 33.4 RDW 15.6 Plt Count 124 L MPV 8.6 Neut % (Auto) 71.0 H Lymph % (Auto) 17.0 [place] % (Auto) 9.4 H Eos % (Auto) 2.0 Baso % (Auto) 0.6 Neut # (Auto) 5.0 Lymph # (Auto) 1.2 [place] # (Auto) 0.7 Eos # (Auto) 0.1 Baso # (Auto) 0.0 WBC Differential . Differential Comment Auto diff final PT 60.1 H D INR 6.0 H* APTT Sodium Potassium Chloride Carbon Dioxide Anion Gap BUN Creatinine Estimated GFR POC Glucose Random Glucose Calcium Total Bilirubin AST ALT Alkaline Phosphatase Total Protein Albumin Digoxin 1.0 11/26/17 11/26/17 11/26/17 06:10 08:26 11:26 WBC RBC Hgb Hct MCV MCH MCHC RDW Plt Count MPV Neut % (Auto) Lymph % (Auto) [place] % (Auto) Eos % (Auto) Baso % (Auto) Neut # (Auto) Lymph # (Auto) [place] # (Auto) Eos # (Auto) Baso # (Auto) WBC Differential Differential Comment PT 61.3 H INR 6.1 H* APTT Sodium 140 Potassium 4.3 Chloride 104 Carbon Dioxide 30.5 Anion Gap 6 BUN 13 Creatinine 1.00 Estimated GFR 73 L POC Glucose 93 Random Glucose 97 Calcium 9.0 Total Bilirubin 0.6 AST 16 ALT 15 Alkaline Phosphatase 67 Total Protein 6.9 Albumin 3.2 L Digoxin 11/26/17 11:52 WBC RBC Hgb Hct MCV MCH MCHC RDW Plt Count MPV Neut % (Auto) Lymph % (Auto) [place] % (Auto) Eos % (Auto) Baso % (Auto) Neut # (Auto) Lymph # (Auto) [place] # (Auto) Eos # (Auto) Baso # (Auto) WBC Differential Differential Comment PT INR APTT Sodium Potassium Chloride Carbon Dioxide Anion Gap BUN Creatinine Estimated GFR POC Glucose 160 H Random Glucose Calcium Total Bilirubin AST ALT Alkaline Phosphatase Total Protein Albumin Digoxin - Imaging Impressions Chest X-Ray 11/25/17 18:59 CONCLUSION: Slight CHF. Left lung nodule is again seen. Head CT 11/25/17 19:15 CONCLUSION: Slight chronic small vessel ischemic and atrophic changes. . Assessment and Plan - Assessment (1) Encephalopathy Code(s): G93.40 - Encephalopathy, unspecified Status: Acute (2) PNA (pneumonia) Code(s): J18.9 - Pneumonia, unspecified organism Status: Acute (3) Supratherapeutic INR Code(s): R79.1 - Abnormal coagulation profile Status: Acute (4) CHF (congestive heart failure) Code(s): I50.9 - Heart failure, unspecified Status: Acute (5) DM (diabetes mellitus) Code(s): E11.9 - Type 2 diabetes mellitus without complications Status: Acute (6) A-fib Code(s): I48.91 - Unspecified atrial fibrillation Status: Acute - Plan 76-year-old male with PMH of Dementia, COPD, HTN, Hyperlipidemia, A. fib on Coumadin and DM who was referred to the ER by his Regional Operations Director, Dr. Burns, for evaluation of elevated INR. Encephalopathy: Likely multifactorial-combination of underlying dementia w/ recent PNA. -CT Head w/ no acute findings, images reviewed. -Neuro checks. -PT for eval/tx. Supratherapeutic INR: INR 7.2, unclear if pt taking Coumadin appropriately or if due to recent antibiotics. -No active bleeding noted -CT Head w/ no acute ICH. -Recheck INR, hold Coumadin -Vitamin K,5mg -INR 7 -->6 A-fib: Hold Coumadin as above -Digoxin level 1.0 -HR 80s PNA: Recent eval 11/21/17 for AMS and PNA, CXR 11/21/17 w/ right basilar airspace disease, s/p Levaquin -CXR w/ no focal consolidation, no antibiotics at this time -DuoNeb prn and scheduled -Symbicort, tiotropium CHF: Chronic. Echo 08/30/16 w/ EF 50-55% -CXR w/ no significant effusion, resume home medications, monitor I/O. DVT Prophylaxis: Hold Coumadin due to elevated INR Code Status: Full Code Discussed Condition With: Patient, nursing Discharge Planning: Plan to DC home when INR is normalized.
[2017-11-26 17:51] LABS: Bilirubin,Urine Negative (Negative); Clarity,Urine Clear (Clear); Color,Urine Straw (Yellw/Straw); Glucose,Urine (UA) Negative (Negative); Leukocyte Esterase,Urine Negative (Negative); Mucus,Urine Few /lpf (Occasional); Nitrite,Urine Negative (Negative); Specific Gravity,Urine 1.005 (1.002-1.035)
[2017-11-27 04:40] VITALS: O2SAT 95
[2017-11-27 06:41] LABS: Baso # (Auto) 0.1 th/mm3 (0.0-0.2); Baso % (Auto) 0.8 % (0.0-2.0); Eos # (Auto) 0.1 th/mm3 (0.0-0.4); Eos % (Auto) 1.8 % (0.0-4.0); Hematocrit 39.2 % (39.0-51.0); Hemoglobin 13.1 gm/dL (13.0-17.0); Lymph # (Auto) 1.2 th/mm3 (1.0-4.8); Lymph % (Auto) 16.1 % (9.0-44.0); Mean Corpuscular HGB Conc 33.5 % (32.0-36.0); Mean Corpuscular Hemoglobin 31.8 pg (27.0-34.0); Mean Corpuscular Volume 95.1 fL (80.0-100.0); Mean Platelet Volume 8.8 fL (7.0-11.0); Mono # (Auto) 0.7 th/mm3 (0.0-0.9); Mono % (Auto) 10.1 % (0.0-8.0); Neut # (Auto) 5.2 th/mm3 (1.8-7.7); Neut % (Auto) 71.2 % (16.0-70.0); Platelet Count 134 th/mm3 (150-450); Red Blood Count 4.12 mil/mm3 (4.50-5.90); Red Cell Distribution Width 15.4 % (11.6-17.2); White Blood Count 7.3 th/mm3 (4.0-11.0)
[2017-11-27 06:45] LABS: INR 2.7 Ratio; Prothrombin Time 27.3 sec (9.8-11.6)
[2017-11-27 06:52] LABS: Calcium 9.2 mg/dL (8.5-10.1); Carbon Dioxide 30.1 meq/L (21.0-32.0)
[2017-11-27] MEDS ORDERED: Warfarin Consult Pharmacy OTHER PRN (08:11)
--- NOTE | 2017-11-27 10:27 | P.DCO ---
- Physical Therapy Order: Evaluate and treat - Occupational Therapy Order: Evaluate and treat - Home Health Nursing Order: Medical education, Signs/symptoms of disease process, Medication education-adverse effect, Nursing assessment with vital signs - Certification I have seen patient Miguel Ángel Ahumada on 11/27/17. My clinical findings support the need for the requested home health care services because: Limited mobility due to disease progression, Medication compliance is questionable, Infection with risk of complications I certify that my clinical findings support that this patient is homebound because: Impaired cognitive ability/safety, Unsteady gait/balance, Poor cardiac reserve
[2017-11-27] MEDS: Metoprolol Tartrate 25 MG Tablet PO SCH (11:05)
[2017-11-27] MEDS: Ferrous Sulfate 325 MG Tablet PO SCH (11:05)
[2017-11-27] MEDS: buPROPion 150 MG 12 HR Tablet PO SCH (11:05)
[2017-11-27] MEDS: Digoxin 125 MCG Tablet PO SCH (11:06)
[2017-11-27] MEDS: Insulin NovoLOG Aspart Correctional Sugar Inj SQ SCH ×2 (11:06→14:18)
[2017-11-27] MEDS: Furosemide 40 MG Tablet PO SCH (11:06)
[2017-11-27] MEDS: Senna/Docusate Sodium 8.6/50 MG Tablet PO SCH (11:06)
--- NOTE | 2017-11-27 11:32 | P.DS ---
Date of admission: 11/25/17 20:11 Primary care physician: Physician [facility] Attending physician on discharge: Alie Orantes Anticipated date of discharge: 11/27/17 Brief History from admission: This is a 76-year-old male with PMH of Dementia, COPD, HTN, Hyperlipidemia, A. fib on Coumadin and DM who was referred to the ER by his Radiologist Physician, Dr. Burns, for evaluation of elevated INR. Pt is poor historian, appears to be confused at baseline. Does tell me he had blood work done yesterday and was called by the office today and told to come to the ER. Pt states he takes Coumadin "3 pills" a day, unclear if he is taking the prescribed 3mg or if he is taking 3mg x3 daily. INR currently 7.2. Recent eval in ER on 11/21/17 for AMS after noted increased confusion from baseline, found to have PNA, offered admission, however pt declined and d/c'd on Levaquin 750mg qd w/ plans for follow up at the [facility]. Denies fever, chills, cough or chest pain at this time. On arrival, BP 170/57, HR 100, O2 sat 94% on RA, Afebrile. CBC unremarkable except for platelets 134, previously 133 on 11/21/2017. Chemistry essentially unremarkable. CXR with slight CHF, left lung nodule again seen, no focal consolidation. CT Head with no acute findings. Patient update on day of discharge: Follow up Visit dementia, COPD, HTN, A. fib on Coumadin, DM, supratherapeutic INR. Patient seen and examined today. Reports he is doing well. Sitting up in the bed. In no acute distress, room air. Denies cough, increasing shortness of breath or dyspnea. Patient states that she thought she was in the hospital for being workup on his sleep apnea. Reorientation provided. Patient appears to be at baseline. Continues to be confused but easily reoriented. Denies pain and discomfort, denies chest pain, palpitations, headaches, dizziness. Denies fevers, chills, nausea, vomiting, diarrhea. Denies dysuria. DS: Diagnosis - Discharge Diagnosis (1) Encephalopathy Status: Acute (2) PNA (pneumonia) Status: Acute (3) Supratherapeutic INR Status: Acute (4) CHF (congestive heart failure) Status: Acute (5) DM (diabetes mellitus) Status: Acute (6) A-fib Status: Acute DS: Summary Hospital Course: 76-year-old male with PMH of Dementia, COPD, HTN, Hyperlipidemia, A. fib on Coumadin and DM who was referred to the ER by his Radiologist Physician, Dr. Burns, for evaluation of elevated INR. Patient with recent pneumonia evaluated for altered mental status prior with right basilar airspace disease status post Levaquin use. His current chest x-ray showed no focal consolidation, hold off on antibiotics for now. So patient continued on duo nebs scheduled and as needed. He was given Symbicort, tiotropium. Patient encephalopathy, altered mental status is likely multifactorial combination with underlying dementia and recent pneumonia. CT of the head with no acute findings. He was referred by his auto parts manager for supratherapeutic INR with his INR at 7.2. It is unclear if patient is taking Coumadin appropriately since he has underlying dementia or if is due to recent antibiotic use. No active bleeding was noted on the patient. CT of the head with no acute ICH. Coumadin was held during his hospitalization he was given vitamin K 5 mg, recent INR 2.7. Will restart warfarin with the same dose of 2. He needs to follow-up with his auto parts manager and outpatient to continue to monitor his INR. Patient has met maximal benefits of hospitalization. Clinically stable for discharge. Was sent home with home health care. All [facility] by [facility] - Time Spent with Patient Total time spent providing and/or coordinating discharge services: Less than 30 minutes - Quality: VTE Deep Vein Thrombosis/Pulmonary Embolism Present on Admission: No Exam Vital signs: Vital Signs 11/26/17 11:53 11/26/17 16:31 11/26/17 19:40 Temperature 98.0 F 98.2 F Pulse Rate 80 79 78 Respiratory Rate 16 14 18 Blood Pressure 166/78 H 172/108 H Pulse Oximetry 95 96 11/26/17 20:09 11/26/17 23:09 11/27/17 00:00 Temperature 97.7 F 98.5 F Pulse Rate 101 H 79 92 H Respiratory Rate 18 17 Blood Pressure 209/102 H 138/98 H 128/78 Pulse Oximetry 95 94 L 11/27/17 04:00 11/27/17 08:00 11/27/17 08:39 Temperature 98.2 F 98.3 F Pulse Rate 97 H 75 85 Respiratory Rate 17 16 16 Blood Pressure 183/101 H 148/85 H Pulse Oximetry 95 95 Intake & Output 11/26/17 11/27/17 11/27/17 18:59 06:59 18:59 Intake Total 0 / 0 Balance 0 / 0 Intake: Oral 0 / 0 Other: Date of Last Bowel Movement 11/26/17 11/26/17 Narrative: GENERAL: This is a well-nourished, well-developed patient, in no apparent distress. SKIN: Warm and dry. HEENT: Normocephalic. Pupils equal round and reactive. Nose without bleeding. Airway patent. NECK: Trachea midline. Supple. CARDIOVASCULAR: Irregular rate and rhythm without murmurs, gallops, or rubs. RESPIRATORY: Diminished bases. No wheezes, rales, or rhonchi. GASTROINTESTINAL: Abdomen soft, non-tender, nondistended. Bowel Sounds normoactive x4. MUSCULOSKELETAL: Extremities without clubbing, cyanosis, or edema. NEUROLOGICAL: Awake and alert. Oriented to person. No focal neuro deficit. Moves all extremities. Normal speech. Results Procedures completed during hospitalization: None Labs on day of discharge: Labs from last 24 hours 11/27/17 11/27/17 11/27/17 09:20 05:28 05:28 WBC 7.3 RBC 4.12 L Hgb 13.1 Hct 39.2 MCV 95.1 MCH 31.8 MCHC 33.5 RDW 15.4 Plt Count 134 L MPV 8.8 Neut % (Auto) 71.2 H Lymph % (Auto) 16.1 [place] % (Auto) 10.1 H Eos % (Auto) 1.8 Baso % (Auto) 0.8 Neut # (Auto) 5.2 Lymph # (Auto) 1.2 [place] # (Auto) 0.7 Eos # (Auto) 0.1 Baso # (Auto) 0.1 WBC Differential . Differential Comment Auto diff final PT INR Sodium 140 Potassium 4.0 Chloride 102 Carbon Dioxide 30.1 Anion Gap 8 BUN 15 Creatinine 1.01 Estimated GFR 72 L POC Glucose 100 Random Glucose 95 Calcium 9.2 Urine Color Urine Clarity Urine pH Ur Specific [place] Urine Protein Urine Glucose (UA) Urine Ketones Urine Occult Blood Urine Nitrate Urine Bilirubin Urine Urobilinogen Ur Leukocyte Esterase Urine RBC Urine WBC Urine Mucus Ur Microscopic Review 11/27/17 11/26/17 11/26/17 05:28 21:26 17:28 WBC RBC Hgb Hct MCV MCH MCHC RDW Plt Count MPV Neut % (Auto) Lymph % (Auto) [place] % (Auto) Eos % (Auto) Baso % (Auto) Neut # (Auto) Lymph # (Auto) [place] # (Auto) Eos # (Auto) Baso # (Auto) WBC Differential Differential Comment PT 27.3 H D INR 2.7 Sodium Potassium Chloride Carbon Dioxide Anion Gap BUN Creatinine Estimated GFR POC Glucose 102 76 Random Glucose Calcium Urine Color Urine Clarity Urine pH Ur Specific [place] Urine Protein Urine Glucose (UA) Urine Ketones Urine Occult Blood Urine Nitrate Urine Bilirubin Urine Urobilinogen Ur Leukocyte Esterase Urine RBC Urine WBC Urine Mucus Ur Microscopic Review 11/26/17 11/26/17 11/26/17 16:00 11:52 11:26 WBC RBC Hgb Hct MCV MCH MCHC RDW Plt Count MPV Neut % (Auto) Lymph % (Auto) [place] % (Auto) Eos % (Auto) Baso % (Auto) Neut # (Auto) Lymph # (Auto) [place] # (Auto) Eos # (Auto) Baso # (Auto) WBC Differential Differential Comment PT 61.3 H INR 6.1 H* Sodium Potassium Chloride Carbon Dioxide Anion Gap BUN Creatinine Estimated GFR POC Glucose 160 H Random Glucose Calcium Urine Color Straw Urine Clarity Clear Urine pH 6.0 Ur Specific [place] 1.005 Urine Protein Negative Urine Glucose (UA) Negative Urine Ketones Negative Urine Occult Blood Small H Urine Nitrate Negative Urine Bilirubin Negative Urine Urobilinogen Less than 2 Ur Leukocyte Esterase Negative Urine RBC 2 Urine WBC Less than 1 Urine Mucus Few H Ur Microscopic Review Not Reportable - Impressions ITS Impressions Chest X-Ray 11/25/17 18:59 CONCLUSION: Slight CHF. Left lung nodule is again seen. Head CT 11/25/17 19:15 CONCLUSION: Slight chronic small vessel ischemic and atrophic changes. . Discharge Plan - Discharge Disposition Patient Disposition: W/Home Health Service - Discharge Condition Condition: Stable - Discharge Order Discharge Orders: Discharge Order (Routine); Ordered 11/27/17 Ordered By: Hermila Cohen - Physicians Team Primary Care Provider: [facility],Physician 's Attending Provider: Alie Orantes
[2017-11-27 12:13] VITALS: BP 142/82; PULSE 88; RESP 18; TEMP 98.1
[2017-11-27] MEDS: Tiotropium Bromide 18 MCG/ACT Inhaler INH SCH (13:06)
[2017-11-27] MEDS: Budesonide-Formoterol 160/4.5 MCG 6 GM Inhaler INH SCH (13:06)
== END 2017-11-27 14:25 | disposition home health service (06) ==
LOC: NEPE 14:53 → NEDA 20:11 → INTOOBSV 20:11 → NEDA 23:52 → NEPHCDU 23:54
PROVIDERS: ADMIT Hospitalist; ATTEND Hospitalist